=== PATIENT | female | born 1990 | race Caucasian/White ===

== ENCOUNTER → 2017-11-29 14:03 | Outpatient (CLI) | payer OTHER, MEDICAID, SELFPAY ==
[2017-11-29 16:34] LABS: Vitamin D 25 Hydroxy (D3) 72.2 ng/mL (30.0-100.0)
== END ==
PROVIDERS: Visit Provider Orthopaedic Surgery Foot and Ankle Surgery
DX: E55.9 Vitamin D deficiency, unspecified (principal)
CPT/HCPCS: 36415; 82306

== ENCOUNTER → 2018-05-31 11:40 | Outpatient (CLI) | payer OTHER, SELFPAY ==
[2018-05-31 16:27] LABS: TSH w/ Reflex to FT4 4.79 uIU/mL (0.47-4.68)
[2018-05-31 17:15] LABS: Free T4, Direct Thyroxine 0.79 ng/dL (0.78-2.19)
== END ==
PROVIDERS: PCP Family Medicine; Visit Provider Family Medicine
DX: E03.9 Hypothyroidism, unspecified (principal)
CPT/HCPCS: 36415; 84439; 84443

== ENCOUNTER → 2018-07-16 14:13 | Outpatient (CLI) | payer OTHER, SELFPAY ==
[2018-07-16 15:38] LABS: Thyroid Stimulating Hormone 4.87 uIU/mL (0.47-4.68)
== END ==
LOC: LAB 14:13
PROVIDERS: PCP Family Medicine; Visit Provider Family Medicine
DX: E03.9 Hypothyroidism, unspecified (principal)
CPT/HCPCS: 36415; 84443

== ENCOUNTER → 2019-01-03 12:25 | Outpatient (CLI) | payer SELFPAY ==
[2019-01-03 15:15] LABS: Bacteria Urine None Seen; RBC Urine None Seen (0-5/HPF)
[2019-01-03 15:24] LABS: Appearance Urine UA CLEAR; Bilirubin Urine UA NEGATIVE (NEGATIVE); Color Urine UA YELLOW; Glucose Urine UA NEGATIVE (Negative); Ketones Urine UA NEGATIVE (NEGATIVE); Leukocyte Esterase Urine UA NEGATIVE (NEGATIVE); Nitrite Urine UA NEGATIVE (Negative); Occult Blood Urine UA NEGATIVE (Negative); Protein Urine UA NEGATIVE (Negative); Specific Gravity Urine UA 1.015 (1.000-1.035); Urobilinogen Urine UA 0.2 E.U./dL (0.2)
[2019-01-03 15:44] LABS: Culture Indicated Urine Cult Not Indicated; Renal Epithelial Cells Urine 0-1/HPF (0-1/HPF); Squamous Epithelial Cell Urine 0-1 /HPF (0-5/HPF); WBC Urine 0-1/HPF (0-5/HPF)
== END ==
PROVIDERS: PCP Family Medicine; Visit Provider Hospitalist
DX: M54.9 Dorsalgia, unspecified (principal)
CPT/HCPCS: 81001

== ENCOUNTER → 2019-02-06 14:43 | Outpatient (CLI) | payer SELFPAY | PROVIDERS: PCP Family Medicine; Visit Provider Family Medicine | DX: E03.9 Hypothyroidism, unspecified (principal) | CPT/HCPCS: 36415; 84443 ==

== ENCOUNTER → 2019-03-25 10:04 | Outpatient (CLI) | payer OTHER, MEDICAID, SELFPAY ==
[2019-03-25 10:42] LABS: Add Manual Diff / Slide Review NO; Basophils Absolute Auto 0 /uL (0-100); Basophils Percent Auto 0.4 % (0-2); Eosinophils Absolute Auto 200 /uL (0-450); Eosinophils Percent Auto 2.4 % (2-4); Hematocrit 34.9 % (36-46); Hemoglobin 11.7 g/dL (12.0-16.0); Lymphocytes Absolute Auto 1900 /uL (1100-4500); Lymphocytes Percent Auto 25.4 % (25-40); Mean Corpuscular HGB Conc 33.4 % (30-36); Mean Corpuscular Hemoglobin 30.8 PG (26-34); Monocytes Absolute Auto 500 /uL (0-900); Monocytes Percent Auto 6.5 % (3-14); Neutrophils Absolute Auto 4900 /uL (1500-7000); Neutrophils Percent Auto 65.3 % (50-75); Platelet Count 304 X10^3/uL (150-400); Red Blood Cell Count 3.79 X10^6/uL (4.0-5.2); Red Cell Distribution Width 12.9 % (11.6-14.8); White Blood Cell Count 7.6 X10^3/uL (4.5-11.0)
[2019-03-25 10:52] LABS: Appearance Urine UA SL CLOUDY; Bilirubin Urine UA NEGATIVE (NEGATIVE); Color Urine UA YELLOW; Glucose Urine UA NEGATIVE (Negative); Ketones Urine UA NEGATIVE (NEGATIVE); Leukocyte Esterase Urine UA NEGATIVE (NEGATIVE); Nitrite Urine UA NEGATIVE (Negative); Occult Blood Urine UA NEGATIVE (Negative); Protein Urine UA NEGATIVE (Negative); Urobilinogen Urine UA 0.2 E.U./dL (0.2)
[2019-03-25 12:20] LABS: Hepatitis B Surface Antigen NEGATIVE s/c (NEGATIVE); Rubella Antibody IgG 77.3 IU/mL (>15)
[2019-03-25 12:22] LABS: HCG Quantitative /Beta subunit 38064 mIU/mL
[2019-03-25 12:50] LABS: HIV 1 & 2 Ab/Ag 4th Gen Combo NEGATIVE (NEGATIVE); Hep C Virus Ab w/Reflex Quant NEGATIVE s/c (NEGATIVE)
[2019-03-27 15:44] LABS: RPR Screen Nonreactive (Nonreactive)
== END ==
PROVIDERS: PCP Family Medicine; Visit Provider Family Medicine
DX: Z34.01 Encounter for supervision of normal first pregnancy, first trimester (principal); E03.9 Hypothyroidism, unspecified
CPT/HCPCS: 36415; 80055; 81003; 84443; 84702; 86787; 86803; 86850; 86900; 86901; 87086; 87389

== ENCOUNTER → 2019-03-27 16:40 | Outpatient (CLI) | payer OTHER, MEDICAID, SELFPAY ==
[2019-03-27 18:39] LABS: HCG Quantitative /Beta subunit 54112 mIU/mL
== END ==
PROVIDERS: PCP Family Medicine; Visit Provider Family Medicine
DX: Z34.90 Encounter for supervision of normal pregnancy, unspecified, unspecified trimester (principal)
CPT/HCPCS: 36415; 84702

== ENCOUNTER 2019-04-24 02:03 | Emergency (ER) | payer OTHER, MEDICAID, SELFPAY ==
[2019-04-24 02:20] VITALS: BP 118/70; PULSE 77; RESP 18; TEMP 36.6; O2SAT 100; BMI 26.9
--- NOTE | 2019-04-24 02:37 | ED_ITS ---
HPI - General Chief complaint: Abdominal Pain Stated complaint: pain in pelvic area/back 10 weeks Time Seen by Provider: 04/24/19 02:29 Source: patient Mode of arrival: Family Vehicle History of Present Illness HPI Narrative: Patient is a 28-year-old female currently 10 weeks G6 P 1 presenting with right-sided pain. His it seems to come in waves of intensity. It was there earlier today but has gotten significantly worse tonight. She was actually seen evaluated by her Ob she had an ultrasound done today which did show healthy baby. She has not had any vaginal bleeding she sometimes feels nauseous but has not been vomiting. No fever or chills. It seems to be in her right lateral side and can sometimes go to her abdomen and sometimes to her flank it is definitely worse with movement. Related Data Home Medications Medication Instructions Recorded Confirmed prenat.vits,lyla,[id number] 1 tab PO DAILY 03/24/19 04/02/19 Previous Rx's Medication Instructions Recorded levothyroxine 50 mcg tablet 50 mcg PO DAILY #30 tab 02/10/19 ondansetron 4 mg disintegrating 4 mg PO Q8H PRN #30 tab 04/02/19 tablet sertraline 25 mg tablet 25 mg PO DAILY #60 tab 04/02/19 Allergies Allergy/AdvReac Type Severity Reaction Status Date / Time Latex, Natural Rubber Allergy Intermediate Rash Verified 04/02/19 14:48 penicillin G Allergy Intermediate Vomiting Verified 04/02/19 14:48 wheat AdvReac Mild Constipatio Verified 04/02/19 14:48 n eggs Allergy Mild Stomach Uncoded 04/02/19 14:48 Upset : egg whites Review of Systems Review of Systems Narrative: GENERAL: Denies chills, fatigue, malaise, fever, sweats, travel HEENT: Denies sinus pain, ear pain, sore throat, difficulty swallowing, neck pain RESPIRATORY: Denies dyspnea, cough, wheezing, hemoptysis, sputum. CARDIOVASCULAR: Denies chest pain, palpitations, orthopnea, edema GASTROINTESTINAL: See HPI : Denies dysuria, frequency, incontinence, hematuria, urinary retention, flank pain. MUSCULOSKELETAL: Denies weakness, joint pain, or bony pain SKIN: No rash, no erythema, no pruritus NEUROLOGIC: Denies weakness, dizziness, headache, numbness, change in speech, confusion PSYCHIATRIC: No concerning psychosocial issues. 12 point review of systems is negative except for those stated above and HPI PMFSH - Past Medical History Additional medical history: Depression, anxiety Surgical history: Reports no surgical history Exam Initial Vital Signs Initial Vital Signs: Vital Signs Temperature 97.9 F 04/24/19 02:20 Pulse Rate 77 04/24/19 02:20 Respiratory Rate 18 04/24/19 02:20 Blood Pressure 118/70 04/24/19 02:20 Pulse Oximetry 100 04/24/19 02:20 GENERAL: Young female tearful appears in pain HEENT: Head atraumatic,EOMI, pupils reactive, face symmetric CARDIOVASCULAR: Regular rate and rhythm without murmurs, rubs or gallops. RESPIRATORY: Breath sounds equal bilaterally, no wheezes rales or rhonchi. ABDOMEN: Soft, mild right lateral pain some right flank pain no role right lower quadrant pain some minimal right upper quadrant pain negative Berg sign EXTREMITIES: Normal range of motion, no clubbing or edema. Neurovascularly intact NEUROLOGICAL: Alert and oriented x4.Normal gait and speech. Cranial nerves II through XII grossly intact. SKIN: Warm, dry, no laceration, no petechiae, no rashes or lesions. Course Orders Ordered: ED Orders 04/24/19 02:38 Complete Blood Count AUTO DIFF Stat Comprehensive Metabolic Panel Stat Lipase Stat 04/24/19 02:45 US abdomen complete Stat Discontinued Medications Hydromorphone HCl (Dilaudid) 0.5 mg IV NOW ONE Stop: 04/24/19 02:46 Last Admin: 04/24/19 02:56 Dose: 0.5 mg Documented by: MMCFARL Sodium Chloride (Normal Saline 0.9%) 1,000 mls @ 1,000 mls/hr IV CONT VEL Last Infusion: 04/24/19 03:37 Dose: 1,000 mls/hr Documented by: Admin: 04/24/19 02:44 Dose: 1,000 mls/hr Documented by: MMCFARL Ondansetron HCl (Zofran) 4 mg IV NOW ONE Stop: 04/24/19 02:31 Last Admin: 04/24/19 02:44 Dose: 4 mg Documented by: MMCFARL Vital Signs Vital signs: Vital Signs - 8 hr 04/24/19 02:20 04/24/19 03:46 04/24/19 04:19 Temperature 97.9 F Pulse Rate 77 78 70 Respiratory Rate 18 19 17 Blood Pressure 118/70 Blood Pressure [Right Arm] 116/63 115/73 Pulse Oximetry 100 100 99 MDM - OB/Uterine Contractions Lab Data Attestation: I reviewed the patient's lab results. Result diagrams: 04/24/19 02:38 04/24/19 02:38 Labs: Lab Results 04/24/19 04/24/19 Range/Units 02:38 02:38 WBC 10.4 (4.5-11.0) X10^3/uL RBC 3.90 L (4.0-5.2) X10^6/uL Hgb 12.2 (12.0-16.0) g/dL Hct 35.6 L (36-46) % MCV 91.3 (80-100) fL MCH 31.3 (26-34) PG MCHC 34.3 (30-36) % RDW 12.7 (11.6-14.8) % Plt Count 300 (150-400) X10^3/uL Neut % (Auto) 78.7 H (50-75) % Lymph % (Auto) 14.3 L (25-40) % [place] % (Auto) 5.7 (3-14) % Eos % (Auto) 0.8 L (2-4) % Baso % (Auto) 0.5 (0-2) % Neut # (Auto) 8200 H (1655-3045) /uL Lymph # (Auto) 1500 (2272-2704) /uL [place] # (Auto) 600 (0-900) /uL Eos # (Auto) 100 (0-450) /uL Baso # (Auto) 100 (0-100) /uL Sodium 137 (137-145) mmol/L Potassium 3.5 (3.4-5.1) mmol/L Chloride 103 (98-107) mmol/L Carbon Dioxide 23 (22-32) mmol/L BUN 13 (7-17) mg/dL Creatinine 0.50 L (0.52-1.04) mg/dL Estimated GFR > 60.0 (>60) mL/min BUN/Creatinine Ratio 26.0 H (6-22) Glucose 108 H (70-100) mg/dL Calcium 9.6 (8.4-10.2) mg/dL Total Bilirubin 0.6 (0.2-1.3) mg/dL AST 27 (14-36) IU/L ALT 18 (<35) IU/L Alkaline Phosphatase 66 (38-126) U/L Total Protein 7.3 (6.3-8.2) g/dL Albumin 4.5 (3.5-5.0) g/dL Globulin 2.8 (1.7-4.1) g/dL Albumin/Globulin Ratio 1.6 (1.0-2.8) Lipase 30 (23-300) U/L Point of Care Testing Test Results Positive Urine Dip Bedside Urine Glucose Negative Bedside Urine Bilirubin - Negative Bedside Urine Ketone - Negative Urine Specific [place] 1.010 Bedside Urine Occult Blood - Negative Bedside Urine pH 7.0 Bedside Urine Protein - Negative Bedside Urine Urobilinogen - Negative Bedside Urine Nitrite - Negative Bedside Urine Leukocytes - Negative Esterase Imaging Data US - abdomen: Radiologist's impression: 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 Live intrauterine fetus with positive cardiac activity measuring 153 beats per minute MDM Narrative Medical decision making narrative: Patient's pain significantly improved after Dilaudid. The pain is worse with movement which suggest more musculoskeletal. No sign of infection ultrasound negative. At this time recommend outpatient follow-up. Discharge Plan Departure Patient Disposition: Home Clinical Impression: Abdominal pain affecting Discharge Date/Time: 04/24/19 04:39 Instructions: DI for Abdominal Pain-Adult, DI for Abdominal Pain -- Early Activity Restrictions/Additional Instructions: *You have been diagnosed with abdominal pain and *What to do: At this time blood work is overall reassuring ultrasound did not show cause of pain. No sign of kidney stone or gallbladder problem appendix was not seen however this is not consistent with appendicitis. Baby as good strong heartbeat *Continue to take medications as directed Tylenol 1000 mg every 6 hours only if needed for mild to moderate pain *Follow up with your primary care provider in 2-3 days *Return to ER if you should have increasing pain, fever not controlled, vaginal bleeding, worsening abdominal pain or cramping or any new, worsening or concerning symptoms Prescriptions: No Action sertraline 25 mg tablet 25 mg PO DAILY Qty: 60 RF: 2 ondansetron 4 mg tablet,disintegrating 4 mg PO Q8H PRN (Reason: nausea and vomiting) Qty: 30 RF: 2 levothyroxine [Synthroid] 50 mcg tablet 50 mcg PO DAILY Qty: 30 RF: 5 prenat.vits,lyla,[id number] Tablet 1 tab PO DAILY RF: 0 Referrals: Xiomara Sarabia MD [Primary Care Provider] -
[2019-04-24] MEDS: ONDANSETRON 4 MG/2 ML INJ IV (02:44)
[2019-04-24] MEDS: SODIUM CHLORIDE 0.9% 1,000 ML 1000 ML IV (02:44)
--- NOTE | 2019-04-24 02:45 | DI.US.S_ITS ---
PROCEDURE: US ABDOMEN COMPLETE INDICATIONS: Right sided pain- lower, flank and ruq TECHNIQUE: Real-time scanning was performed of the abdominal and retroperitoneal organs, with image documentation. COMPARISON: None. FINDINGS: Liver: Liver is normal in size and homogeneous in echotexture. Gallbladder: No gallstones. No gallbladder wall thickening, pericholecystic fluid or sonographic Berg's sign. Biliary ducts: Intrahepatic bile ducts are non-dilated. Extrahepatic bile duct caliber measures 5.3 mm. Normal is 6-7 mm or less in diameter, or 10 mm or less post-cholecystectomy. Pancreas: Visualized portions of the pancreas are sonographically normal. Spleen: Spleen is normal in size and homogeneous in echotexture. Kidneys: Kidneys are normal in size and echotexture. Right kidney measures 11.4 cm long; left kidney measures 10.5 cm long. No hydronephrosis or nephrolithiasis. No solid masses. Aorta: Visualized aorta is normal in caliber at less than 3 cm. Iliacs: Proximal common iliac arteries are normal in caliber at less than 2.5 cm. IVC: Intrahepatic inferior vena cava is patent. Miscellaneous: No free abdominal fluid. There is an single living IUP. heart rate is 153 bpm. IMPRESSION: 1. Normal abdominal ultrasound. 2. Single living IUP with heart rate 153 bpm. Dictated by: Marlin Mcnulty M.D. on 04/24/2019 at 8:49 Approved by: Marlin Mcnulty M.D. on 04/24/2019 at 8:51
[2019-04-24 02:51] LABS: Add Manual Diff / Slide Review NO; Basophils Absolute Auto 100 /uL (0-100); Basophils Percent Auto 0.5 % (0-2); Eosinophils Absolute Auto 100 /uL (0-450); Eosinophils Percent Auto 0.8 % (2-4); Hematocrit 35.6 % (36-46); Hemoglobin 12.2 g/dL (12.0-16.0); Lymphocytes Absolute Auto 1500 /uL (1100-4500); Lymphocytes Percent Auto 14.3 % (25-40); Mean Corpuscular HGB Conc 34.3 % (30-36); Mean Corpuscular Hemoglobin 31.3 PG (26-34); Mean Corpuscular Volume 91.3 fL (80-100); Monocytes Absolute Auto 600 /uL (0-900); Monocytes Percent Auto 5.7 % (3-14); Neutrophils Absolute Auto 8200 /uL (1500-7000); Neutrophils Percent Auto 78.7 % (50-75); Platelet Count 300 X10^3/uL (150-400); Red Cell Distribution Width 12.7 % (11.6-14.8); White Blood Cell Count 10.4 X10^3/uL (4.5-11.0)
[2019-04-24] MEDS: HYDROMORPHONE 0.5 MG INJ IV (02:56)
[2019-04-24 02:59] LABS: Alanine Aminotransferase 18 IU/L (<35); Albumin 4.5 g/dL (3.5-5.0); Albumin Globulin Ratio 1.6 (1.0-2.8); Alkaline Phosphatase 66 U/L (38-126); Aspartate Aminotransferase 27 IU/L (14-36); Bilirubin Total 0.6 mg/dL (0.2-1.3); Blood Urea Nitrogen 13 mg/dL (7-17); Calcium 9.6 mg/dL (8.4-10.2); Carbon Dioxide 23 mmol/L (22-32); Chloride 103 mmol/L (98-107); Estimated Glomerular Filt Rate > 60.0 mL/min (>60); Globulin 2.8 g/dL (1.7-4.1); Glucose 108 mg/dL (70-100); HEMOLYSIS 26 (0-50); Lipase 30 U/L (23-300); Potassium 3.5 mmol/L (3.4-5.1); Sodium 137 mmol/L (137-145); Total Protein 7.3 g/dL (6.3-8.2)
[2019-04-24 03:46] VITALS: BP 116/63; PULSE 78; RESP 19; O2SAT 100
[2019-04-24 04:19] VITALS: BP 115/73; PULSE 70; RESP 17; O2SAT 99
== END 2019-04-24 04:39 | disposition home or self-care (01) ==
PROVIDERS: Emergency Provider Emergency Medicine; PCP Family Medicine
DX: R10.9 Unspecified abdominal pain (principal)
CPT/HCPCS: 36415; 76700; 80053; 81003; 81025; 83690; 85025; 96361; 96374; 96375; 99284; J1170; J2405

== ENCOUNTER 2019-05-01 03:08 | Emergency (ER) | payer OTHER, MEDICAID, SELFPAY ==
[2019-05-01 03:17] VITALS: BP 116/81; PULSE 87; RESP 22; TEMP 36.8; O2SAT 99; BMI 25.9
--- NOTE | 2019-05-01 03:28 | ED_ITS ---
HPI - Nausea/Vomiting/Diarrhea General Chief complaint: Nausea/Vomiting/Diarrhea Stated complaint: 11 weeks vomiting Time Seen by Provider: 05/01/19 03:10 Source: patient Mode of arrival: Ambulatory Limitations: no limitations History of Present Illness HPI Narrative: 28-year-old female nonsmoker, daily user of cannabis is a at 11 weeks who presents with chief complaint of 2 hours of frequent vomiting and episodes of generalized abdominal pain. She denies any exposure to ill persons and denies any bad food. She has had no fever but has had complaints of chills, particularly with vomiting. She denies any vaginal bleeding or discharge. She denies any dysuria, frequency or urgency. A week ago under very similar circumstances and had an unremarkable abdominal ultrasound. She had been fine a nd well until she woke up about 2 hours prior to her arrival and states that vomiting and this episodic abdominal discomfort started about the same time MD complaint: nausea, vomiting and abdominal pain Onset (ago): hour(s) Description of Vomiting: food contents Description of Diarrhea: none Associated Abdominal Pain: Yes Location of pain: diffuse Severity: moderate Quality: cramping Pain Consistency: intermittent Relieving factors: none Exacerbating factors: none Associated symptoms: denies other symptoms Related Data Home Medications Medication Instructions Recorded Confirmed prenat.vits,lyla,[id number] 1 tab PO DAILY 03/24/19 04/02/19 Previous Rx's Medication Instructions Recorded levothyroxine 50 mcg tablet 50 mcg PO DAILY #30 tab 02/10/19 ondansetron 4 mg disintegrating 4 mg PO Q8H PRN #30 tab 04/02/19 tablet sertraline 25 mg tablet 25 mg PO DAILY #60 tab 04/02/19 metoclopramide HCl 10 mg PO Q6H PRN #20 tab 05/01/19 ondansetron 4 mg PO TID-QID PRN #10 tab 05/01/19 Allergies Allergy/AdvReac Type Severity Reaction Status Date / Time Latex, Natural Rubber Allergy Intermediate Rash Verified 05/01/19 03:17 penicillin G Allergy Intermediate Vomiting Verified 05/01/19 03:17 wheat AdvReac Mild Constipatio Verified 05/01/19 03:17 n eggs Allergy Mild Stomach Uncoded 05/01/19 03:17 Upset : egg whites Review of Systems Constitutional Constitutional: Denies chills, Denies fatigue, Denies fever(s), Denies frequent falls, Denies lethargy and Denies weakness Eyes Eyes: Denies change in vision, Denies eye discharge, Denies irritation and Denies loss of vision ENT Ears, Nose, Mouth, and Throat: Denies change in voice, Denies dizziness, Denies neck pain, Denies sore throat and Denies throat swelling Cardiovascular Cardiovascular: Denies chest pain, Denies irregular heart rhythm, Denies lightheadedness, Denies palpitations, Denies dyspnea, Denies dyspnea on exertion and Denies orthopnea Respiratory Respiratory: Denies cough, Denies dyspnea, Denies dyspnea on exertion and Denies wheezing Gastrointestinal Gastrointestinal: Reports abdominal pain, Denies change in bowel habits, Denies diarrhea, Reports nausea and Reports vomiting Genitourinary Genitourinary: Denies hematuria, Denies flank pain, Denies urinary incontinence and Denies urinary urgency Musculoskeletal Musculoskeletal: Denies back pain, Denies muscle weakness, Denies neck pain, Denies numbness and Denies tingling Integumentary/Breasts Skin/Breast: Denies pruritus, Denies erythema, Denies rash and Denies wounds Neurologic Neurologic: Denies behavioral changes, Denies confusion, Denies dizziness, Denies frequent falls, Denies loss of vision, Denies numbness, Denies tingling and Denies weakness Psychiatric Psychiatric: Denies anxiety, Denies behavioral changes, Denies confusion, Denies depression, Denies homicidal ideation and Denies suicidal ideation Endocrine Endocrine: Denies fatigue, Denies flushing and Denies palpitations Hematologic/Lymphatic Hematologic/Lymphatic: Denies easy bruising Allergic/Immunologic Allergic/Immunologic: Denies urticaria, Denies throat swelling and Denies wheezing Patient History Medical History Anemia (Chronic ~2009) Ankle pain (Chronic ~2003) Anorexia nervosa (Chronic) Anxiety (Chronic ~1999) Asthma (Chronic ~2002) Chronic back pain (Chronic ~2007) Depression (Chronic ~1999) Depression with anxiety (Chronic) Fibromyalgia (Chronic ~2003) Foot pain (Chronic ~2008) H/O reduction of closed dislocation (Resolved) Headache (Chronic ~2006) Heavy menstrual period (Chronic ~2002) Hypothyroid (Chronic ~2006) Irritable bowel syndrome (Chronic) Ovarian cyst (Chronic ~2013) Painful menstrual periods (Chronic ~2002) Scoliosis (Chronic ~2006) Seasonal allergies (Chronic) Shoulder pain (Chronic ~2005) Substance abuse (Chronic ~2005) Surgical History Anesthesia (Resolved) History of bone graft (Resolved ~09/04/17) Humerus fracture (Resolved ~2017) Staph infection (Resolved ~10/2009) Family History Grandmother Diabetes mellitus Cancer Sister Lupus Depression Anxiety Mother Hyperlipidemia Hypertension Grandfather Cancer Diabetes mellitus Suicide Grandfather Brain tumor Family/Other Diabetes mellitus Social History marital status: household members: significant other and children pets and animals: Yes (Dogs X 2) education level: other (Some Trade School) occupational status: employed current occupational exposures/hazards: Yes 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 Well- nourished, well-developed patient, in mild distress. HEAD: Atraumatic. Normocephalic. EYES: Pupils equal round and reactive. Extraocular motions intact. No scleral icterus. No injection or drainage. ENT: Nose without bleeding, purulent drainage. Throat without erythema, tonsillar hypertrophy or exudate. Airway patent. NECK: Trachea midline. Non tender CARDIOVASCULAR: Regular rate and rhythm without murmurs, gallops, or rubs. RESPIRATORY: Clear to auscultation. Breath sounds equal bilaterally. No wheezes, rales, or rhonchi. GASTROINTESTINAL: Abdomen soft, non-tender, nondistended. EXTREMITIES: No edema or joint tenderness. BACK: Nontender without deformity or crepitance. No flank tenderness. NEURO: AOx3. SKIN: No rash or erythema of visible areas Initial Vital Signs Initial Vital Signs: Vital Signs Temperature 98.2 F 05/01/19 03:17 Pulse Rate 87 05/01/19 03:17 Respiratory Rate 22 05/01/19 03:17 Blood Pressure 116/81 05/01/19 03:17 Pulse Oximetry 99 05/01/19 03:17 Course Orders Ordered: ED Orders 05/01/19 03:30 Complete Blood Count AUTO DIFF Stat Comprehensive Metabolic Panel Stat Ketones (Beta-Hydroxybutyrate) Stat 05/01/19 03:35 Urinalysis and Microscopic Stat Discontinued Medications Sodium Chloride (Normal Saline 0.9%) 1,000 mls @ 1,000 mls/hr IV BOLUS ONE Stop: 05/01/19 04:19 Last Infusion: 05/01/19 04:27 Dose: 0 mls/hr Documented by: Admin: 05/01/19 03:35 Dose: 1,000 mls/hr Documented by: NORBERTO Sodium Chloride (Normal Saline 0.9%) 1,000 mls @ 1,000 mls/hr IV BOLUS ONE Stop: 05/01/19 05:18 Last Infusion: 05/01/19 05:29 Dose: 0 mls/hr Documented by: Admin: 05/01/19 04:26 Dose: 1,000 mls/hr Documented by: NORBERTO Metoclopramide HCl (Reglan) 10 mg IV NOW ONE Stop: 05/01/19 04:22 Last Admin: 05/01/19 04:27 Dose: 10 mg Documented by: NORBERTO Ondansetron HCl (Zofran) 4 mg IV NOW ONE Stop: 05/01/19 03:21 Last Admin: 05/01/19 03:35 Dose: 4 mg Documented by: NORBERTO Ondansetron HCl (Zofran) 4 mg IV NOW ONE Stop: 05/01/19 06:25 Vital Signs Vital signs: Vital Signs - 8 hr 05/01/19 03:17 Temperature 98.2 F Pulse Rate 87 Respiratory Rate 22 Blood Pressure 116/81 Pulse Oximetry 99 MDM - Nausea/Vomiting/Diarrhea Lab Data Result diagrams: 05/01/19 03:30 05/01/19 03:30 Labs: Lab Results 05/01/19 05/01/19 05/01/19 Range/Units 03:30 03:30 03:30 WBC 11.3 H (4.5-11.0) X10^3/uL RBC 3.84 L (4.0-5.2) X10^6/uL Hgb 11.8 L (12.0-16.0) g/dL Hct 35.0 L (36-46) % MCV 91.2 (80-100) fL MCH 30.7 (26-34) PG MCHC 33.7 (30-36) % RDW 13.1 (11.6-14.8) % Plt Count 287 (150-400) X10^3/uL Neut % (Auto) 76.8 H (50-75) % Lymph % (Auto) 15.7 L (25-40) % [place] % (Auto) 6.0 (3-14) % Eos % (Auto) 1.2 L (2-4) % Baso % (Auto) 0.3 (0-2) % Neut # (Auto) 8700 H (3963-5115) /uL Lymph # (Auto) 1800 (9940-8575) /uL [place] # (Auto) 700 (0-900) /uL Eos # (Auto) 100 (0-450) /uL Baso # (Auto) 0 (0-100) /uL Sodium 137 (137-145) mmol/L Potassium 3.6 (3.4-5.1) mmol/L Chloride 103 (98-107) mmol/L Carbon Dioxide 24 (22-32) mmol/L BUN 12 (7-17) mg/dL Creatinine 0.40 L (0.52-1.04) mg/dL Estimated GFR > 60.0 (>60) mL/min BUN/Creatinine Ratio 30.0 H (6-22) Glucose 107 H (70-100) mg/dL Calcium 9.3 (8.4-10.2) mg/dL Total Bilirubin 0.1 L (0.2-1.3) mg/dL AST 30 (14-36) IU/L ALT 30 (<35) IU/L Alkaline Phosphatase 71 (38-126) U/L Total Protein 7.0 (6.3-8.2) g/dL Albumin 4.2 (3.5-5.0) g/dL Globulin 2.8 (1.7-4.1) g/dL Albumin/Globulin Ratio 1.5 (1.0-2.8) Urine Color Urine Appearance Urine pH (4.5-8.0) Ur Specific [place] (1.000-1.035) Urine Protein (Negative) Urine Glucose (UA) (Negative) g/dL Urine Ketones (NEGATIVE) Urine Occult Blood (Negative) Urine Nitrate (Negative) Urine Bilirubin (NEGATIVE) Urine Urobilinogen (0.2) E.U./dL Ur Leukocyte Esterase (NEGATIVE) Urine RBC (0-5/HPF) Urine WBC (0-5/HPF) Amorphous Sediment Urine Bacteria (None) Ur Culture Indicated? Ketones 0.11 (<0.27) mmol/L 05/01/19 Range/Units 03:35 WBC (4.5-11.0) X10^3/uL RBC (4.0-5.2) X10^6/uL Hgb (12.0-16.0) g/dL Hct (36-46) % MCV (80-100) fL MCH (26-34) PG MCHC (30-36) % RDW (11.6-14.8) % Plt Count (150-400) X10^3/uL Neut % (Auto) (50-75) % Lymph % (Auto) (25-40) % [place] % (Auto) (3-14) % Eos % (Auto) (2-4) % Baso % (Auto) (0-2) % Neut # (Auto) (4860-1582) /uL Lymph # (Auto) (6768-5822) /uL [place] # (Auto) (0-900) /uL Eos # (Auto) (0-450) /uL Baso # (Auto) (0-100) /uL Sodium (137-145) mmol/L Potassium (3.4-5.1) mmol/L Chloride (98-107) mmol/L Carbon Dioxide (22-32) mmol/L BUN (7-17) mg/dL Creatinine (0.52-1.04) mg/dL Estimated GFR (>60) mL/min BUN/Creatinine Ratio (6-22) Glucose (70-100) mg/dL Calcium (8.4-10.2) mg/dL Total Bilirubin (0.2-1.3) mg/dL AST (14-36) IU/L ALT (<35) IU/L Alkaline Phosphatase (38-126) U/L Total Protein (6.3-8.2) g/dL Albumin (3.5-5.0) g/dL Globulin (1.7-4.1) g/dL Albumin/Globulin Ratio (1.0-2.8) Urine Color Yellow Urine Appearance Cloudy Urine pH 7.0 (4.5-8.0) Ur Specific [place] 1.010 (1.000-1.035) Urine Protein Negative (Negative) Urine Glucose (UA) Negative (Negative) g/dL Urine Ketones Negative (NEGATIVE) Urine Occult Blood Negative (Negative) Urine Nitrate Negative (Negative) Urine Bilirubin Negative (NEGATIVE) Urine Urobilinogen 0.2 (0.2) E.U./dL Ur Leukocyte Esterase Negative (NEGATIVE) Urine RBC None seen (0-5/HPF) Urine WBC None seen (0-5/HPF) Amorphous Sediment 4+ Urine Bacteria None seen (None) Ur Culture Indicated? Cult not indicated Ketones (<0.27) mmol/L Discharge Plan Departure Patient Disposition: Home Clinical Impression: Qualifiers: Weeks of gestation: 11 weeks Qualified Code(s): Z3A.11 - 11 weeks gestation of Vomiting Qualifiers: Vomiting type: unspecified Vomiting Intractability: non-intractable Nausea presence: with nausea Qualified Code(s): R11.2 - Nausea with vomiting, unspecified Instructions: DI for Dehydration -- Adult, DI for Nausea -- Adult, DI for Vomiting -- Adult Activity Restrictions/Additional Instructions: 1. Drink plenty of fluids with frequent small sips. 2. For the next 24 hours a clear liquid diet is advised. After that please employ a brat diet which would include bananas, rice, apples, toast. 3. Please take medications as directed. 4. Please follow-up with your doctor in the next 1-2 days. Call the office for an appointment. 5. Please return to the emergency Department for any worsening or persistent symptoms, such as increasing pain or fever. Prescriptions: New ondansetron 4 mg tablet,disintegrating 4 mg PO TID-QID PRN (Reason: nausea and vomiting) Qty: 10 RF: 0 metoclopramide HCl 10 mg tablet 10 mg PO Q6H PRN (Reason: nausea and vomiting) Qty: 20 RF: 0 No Action sertraline 25 mg tablet 25 mg PO DAILY Qty: 60 RF: 2 ondansetron 4 mg tablet,disintegrating 4 mg PO Q8H PRN (Reason: nausea and vomiting) Qty: 30 RF: 2 levothyroxine [Synthroid] 50 mcg tablet 50 mcg PO DAILY Qty: 30 RF: 5 prenat.vits,lyla,[id number] Tablet 1 tab PO DAILY RF: 0 Referrals: Xiomara Sarabia MD [Primary Care Provider] -
[2019-05-01] MEDS: SODIUM CHLORIDE 0.9% 1,000 ML 1000 ML IV ×2 (03:35→04:26)
[2019-05-01] MEDS: ONDANSETRON 4 MG/2 ML INJ IV ×2 (03:35→06:40)
[2019-05-01 03:36] LABS: Add Manual Diff / Slide Review NO; Basophils Absolute Auto 0 /uL (0-100); Basophils Percent Auto 0.3 % (0-2); Eosinophils Absolute Auto 100 /uL (0-450); Eosinophils Percent Auto 1.2 % (2-4); Hemoglobin 11.8 g/dL (12.0-16.0); Lymphocytes Absolute Auto 1800 /uL (1100-4500); Lymphocytes Percent Auto 15.7 % (25-40); Mean Corpuscular HGB Conc 33.7 % (30-36); Mean Corpuscular Hemoglobin 30.7 PG (26-34); Mean Corpuscular Volume 91.2 fL (80-100); Monocytes Absolute Auto 700 /uL (0-900); Neutrophils Absolute Auto 8700 /uL (1500-7000); Neutrophils Percent Auto 76.8 % (50-75); Platelet Count 287 X10^3/uL (150-400); Red Blood Cell Count 3.84 X10^6/uL (4.0-5.2); Red Cell Distribution Width 13.1 % (11.6-14.8); White Blood Cell Count 11.3 X10^3/uL (4.5-11.0)
[2019-05-01 03:41] LABS: Bacteria Urine None Seen; RBC Urine None Seen (0-5/HPF); WBC Urine None Seen (0-5/HPF)
[2019-05-01 03:42] LABS: Bilirubin Urine UA NEGATIVE (NEGATIVE); Color Urine UA YELLOW; Glucose Urine UA NEGATIVE (Negative); Ketones Urine UA NEGATIVE (NEGATIVE); Leukocyte Esterase Urine UA NEGATIVE (NEGATIVE); Nitrite Urine UA NEGATIVE (Negative); Occult Blood Urine UA NEGATIVE (Negative); Protein Urine UA NEGATIVE (Negative); Urobilinogen Urine UA 0.2 E.U./dL (0.2)
[2019-05-01 03:43] LABS: Appearance Urine UA Cloudy
[2019-05-01 03:45] LABS: Alanine Aminotransferase 30 IU/L (<35); Albumin 4.2 g/dL (3.5-5.0); Albumin Globulin Ratio 1.5 (1.0-2.8); Alkaline Phosphatase 71 U/L (38-126); Aspartate Aminotransferase 30 IU/L (14-36); Bilirubin Total 0.1 mg/dL (0.2-1.3); Blood Urea Nitrogen 12 mg/dL (7-17); Calcium 9.3 mg/dL (8.4-10.2); Carbon Dioxide 24 mmol/L (22-32); Chloride 103 mmol/L (98-107); Estimated Glomerular Filt Rate > 60.0 mL/min (>60); Globulin 2.8 g/dL (1.7-4.1); Glucose 107 mg/dL (70-100); HEMOLYSIS < 15 (0-50); Potassium 3.6 mmol/L (3.4-5.1); Sodium 137 mmol/L (137-145)
[2019-05-01 03:47] LABS: Ketones (Beta-Hydroxybutyrate) 0.11 mmol/L (<0.27)
[2019-05-01 03:50] LABS: Amorphous Sediment Urine 4+; Culture Indicated Urine Cult Not Indicated
[2019-05-01] MEDS: METOCLOPRAMIDE 10 MG/2 ML INJ IV (04:27)
[2019-05-01 06:46] VITALS: BP 105/63; PULSE 70; RESP 18; O2SAT 99
== END 2019-05-01 06:46 | disposition home or self-care (01) ==
PROVIDERS: Emergency Provider Emergency Medicine; PCP Family Medicine
DX: O21.9 Vomiting of pregnancy, unspecified (principal); Z3A.11 11 weeks gestation of pregnancy
CPT/HCPCS: 36415; 80053; 81001; 82009; 85025; 96361; 96374; 96375; 96376; 99283; 99284; J2405; J2765

== ENCOUNTER → 2019-06-10 14:35 | Outpatient (CLI) | payer OTHER, MEDICAID, SELFPAY ==
[2019-06-13 12:09] LABS: AFP, Serum 35.5 ng/mL; Brief History NTD NG; Cigarette Smoker N; Donated Egg NOT GIVEN; Donor Egg Age NOT GIVEN; Inhibin A, Dimeric 131 pg/mL; Maternal Ethnicity NOT GIVEN; Maternal Weight 150 lbs; Number of Fetuses NOT GIVEN; Previous Pregnancy Down Syndro NOT GIVEN; hCG, MoM 0.78
[2019-06-25 15:48] LABS: Inhibin A, MoM 0.79
== END ==
PROVIDERS: PCP Family Medicine; Referring Provider Family Medicine; Visit Provider Family Medicine
DX: Z34.92 Encounter for supervision of normal pregnancy, unspecified, second trimester (principal)
CPT/HCPCS: 36415; 82105; 82677; 84702; 86336

== ENCOUNTER → 2019-07-01 09:56 | Outpatient (CLI) | payer OTHER, MEDICAID, SELFPAY ==
--- NOTE | 2019-07-01 09:58 | DI.US.S_ITS ---
PROCEDURE: US OB >= 14 WEEKS FETUS INDICATIONS: ANATOMY OUTSIDE/PRIOR DATING DATA: Last menstrual period (LMP): 02/07/19. LMP-based estimated date of delivery (WILLIAM): 11/14/19. First dating scan (date and location): 07/01/19. Estimated date of delivery (WILLIAM) from first dating scan: 11/14/19. TECHNIQUE: Real-time scanning was performed of the fetus, with image documentation and biometric measurements. Endovaginal scanning: Not needed. COMPARISON: None. FINDINGS: General: A single living intrauterine gestation is present. Presentation: Breech, currently mobile. Placenta: Placental position is anterior, without previa. Amniotic fluid index: 17.0 cm, normal range is 5-24 cm. heart rate: 140 beats per minute. Maternal cervical canal: 4.6 cm long. Normal lower limit is 2.5 cm. biometrics: Biparietal diameter: 4.8 cm, 20 weeks 3 days Head circumference: 17.9 cm, 20 weeks 2 days Abdominal circumference: 15.6 cm, 20 weeks 6 days Femur length: 3.3 cm, 20 weeks 3 days Estimated gestational age from initial scan: not applicable. Composite gestational age from present scan: 20 weeks 4 days Estimated weight and percentile: 363 g, 45th percentile Measurement variability for biometric dating: +/- 7 days from 14 weeks to 15 weeks 6 days gestation, +/- 10 days from 16 weeks to 21 weeks 6 days gestation, +/- 2 weeks from 22 weeks to 27 weeks 6 days gestation, +/- 3 weeks for 28 weeks gestation or later. weight reference: 4500 g or EFW >90/95% is considered macrosomia or large for gestational age. EFW <10% is small for gestational age. EFW 5% or less is considered intra-uterine growth restriction. Anatomic survey: Neuro: Ventricles are non-dilated at less than 10 mm. Cisterna magna is normal at 3-11 mm. Cerebellum is normal in size and morphology. Nuchal skin fold: Normal at less than 6 mm between 14-21 weeks gestational age. Face: Nose and lips, facial profile are normal. Spine: No evidence for spina bifida. Heart: 4-chambered heart is present, with normal ventricular outflow tracts. Diaphragm: Diaphragm is intact. Stomach: Left-sided stomach is present. Kidneys: No hydronephrosis. Normal is less than 5 mm in 2nd trimester, less than 7 mm in 3rd trimester. Cord: 3-vessel cord has orthotopic insertion. Bladder: Normal in size. Extremities: All 4 extremities identified. IMPRESSION: Appropriate interval growth, no anomaly seen. Dictated by: Michael Pearson M.D. on 07/01/2019 at 15:05 Approved by: Michael Pearson M.D. on 07/01/2019 at 15:15
== END ==
PROVIDERS: PCP Family Medicine; Referring Provider Family Medicine; Visit Provider Family Medicine
DX: Z34.92 Encounter for supervision of normal pregnancy, unspecified, second trimester (principal); Z3A.20 20 weeks gestation of pregnancy
CPT/HCPCS: 76811

== ENCOUNTER → 2019-08-26 11:08 | Outpatient (CLI) | payer OTHER, MEDICAID, SELFPAY ==
[2019-08-26 13:48] LABS: Hemoglobin 10.6 g/dL (12.0-16.0)
[2019-08-26 14:05] LABS: GTT (PREG) 1 Hour PP 50gm Dose 143 mg/dL (76-139)
[2019-08-26 14:31] LABS: Thyroid Stimulating Hormone 3.52 uIU/mL (0.47-4.68)
== END ==
PROVIDERS: PCP Family Medicine; Referring Provider Family Medicine; Visit Provider Family Medicine
DX: Z34.90 Encounter for supervision of normal pregnancy, unspecified, unspecified trimester (principal); E03.9 Hypothyroidism, unspecified; Z3A.26 26 weeks gestation of pregnancy
CPT/HCPCS: 36415; 82950; 84443; 85014; 85018

== ENCOUNTER → 2019-08-28 10:03 | Outpatient (CLI) | payer OTHER, MEDICAID, SELFPAY ==
[2019-08-28 12:09] LABS: Glucose Fasting Gestational 70 mg/dL (76-95)
[2019-08-28 13:19] LABS: Glucose 2 Hour Gest 88 mg/dL (76-155)
[2019-08-28 13:20] LABS: Glucose 1 Hour Gest 125 mg/dL (76-180)
[2019-08-28 13:28] LABS: Glucose Tol Interp,Gestational INTERPRETATION
[2019-08-28 15:22] LABS: Glucose 3 Hour Gest 96 mg/dL (76-140)
== END ==
PROVIDERS: PCP Family Medicine; Referring Provider Family Medicine; Visit Provider Family Medicine
DX: R73.09 Other abnormal glucose (principal)
CPT/HCPCS: 36415; 82951; 82952

== ENCOUNTER → 2019-10-20 12:23 | Outpatient (CLI) | payer OTHER, MEDICAID, SELFPAY ==
[2019-10-21 15:09] LABS: Strep Grp B PCR NEG for Grp B Strep
== END ==
PROVIDERS: PCP Family Medicine; Visit Provider Family Medicine
DX: Z34.90 Encounter for supervision of normal pregnancy, unspecified, unspecified trimester (principal); Z3A.11 11 weeks gestation of pregnancy
CPT/HCPCS: 87653

== ENCOUNTER → 2019-10-27 12:19 | Outpatient (CLI) | payer OTHER, MEDICAID, SELFPAY | PROVIDERS: PCP Family Medicine; Referring Provider Family Medicine; Visit Provider Family Medicine | DX: E03.9 Hypothyroidism, unspecified (principal) | CPT/HCPCS: 36415; 84443 ==

== ENCOUNTER 2019-11-09 09:12 | Inpatient (IN) | payer OTHER, MEDICAID, SELFPAY ==
--- NOTE | 2019-11-09 | PATH_ITS ---
[facility] Accession Number: [id number] . 01 Material submitted: . PART A: fallopian tube - RIGHT FALLOPIAN TUBE SEGMENT PART B: fallopian tube - LEFT FALLOPIAN TUBE SEGMENT . 02 Diagnosis: A. Right Fallopian Tube Segment, Tubal Ligation: Segment of fallopian tube. No evidence of neoplasm. . B. Left Fallopian Tube Segment, Tubal Ligation: Segment of fallopian tube. No evidence of neoplasm. MRV 11/12/2019 1036 Local . 02 Electronically signed: . Earnest Farr MD, PhD, Pathologist NPI- [id number] . 01 Gross description: . Specimen A is received in formalin, labeled with patient identification and right fallopian tube segment. It consists of a nonfimbriated fallopian tube segment measuring 1.3 cm in length and 0.6 cm in diameter. The serosa is pink-panchal and dull. Sectioning reveals pinpoint and patent lumen which is lined by white-panchal and smooth mucosa. The entire specimen is submitted in one cassette. . Summary of sections: A1 - three pieces. . Specimen B is received in formalin, labeled with patient identification and left fallopian tube segment. It consists of a nonfimbriated fallopian tube segment measuring 1.0 cm in length and 0.5 cm in diameter. The serosa is pink-panchal and dull. Sectioning reveals pinpoint and patent lumen which is lined by yellow-panchal and grossly unremarkable mucosa. The entire specimen is submitted in one cassette. . Summary of sections: B1 - three pieces. ([id number]) /MRV 11/11/2019 1015 Local . 02 Microscopic: . A-B: A complete cross-section of fallopian tube is seen in each part submitted. . 02 Pathologist provided ICD-10: Z30.2 . 02 CPT . 870209, [id number] Performed at: 01 [facility] [address] [place] [address], [place], [place] [id number] MD Kwabena Brewer MD Phone: [phone] Performed at: 02 [facility] [address] [place], [place] [id number] MD Arabella Sacuedo MD Phone: [phone]
[2019-11-09 10:02] LABS: RBC Urine None Seen (0-5/HPF); WBC Urine None Seen (0-5/HPF)
[2019-11-09 10:03] LABS: Appearance Urine UA CLEAR; Bilirubin Urine UA NEGATIVE (NEGATIVE); Color Urine UA YELLOW; Glucose Urine UA NEGATIVE (Negative); Ketones Urine UA NEGATIVE (NEGATIVE); Leukocyte Esterase Urine UA NEGATIVE (NEGATIVE); Nitrite Urine UA NEGATIVE (Negative); Occult Blood Urine UA NEGATIVE (Negative); Protein Urine UA NEGATIVE (Negative); Urobilinogen Urine UA 0.2 E.U./dL (0.2)
[2019-11-09 10:04] LABS: pH Urine UA 7.5 (4.5-8.0)
[2019-11-09 10:10] LABS: Bacteria Urine Occasional (0-1); Culture Indicated Urine Cult Not Indicated; Squamous Epithelial Cell Urine 0-1 /HPF (0-5/HPF)
[2019-11-09] MEDS: LACTATED RINGERS 1,000 ML 1000 ML IV (10:20)
[2019-11-09 11:07] LABS: COVID19 -Nasal RAPID Negative (Negative)
--- NOTE | 2019-11-09 11:07 | P.HPOB_ITS ---
OB HPI Date/Time Date of admission: 11/09/19 Date Patient Seen: 11/09/19 Time Patient Seen: 11:47 History of Present Condition Chief complaint: NST : 6 Para: 1 Estimated Date of Delivery: 11/18/19 Estimated Gestational Age (weeks): 38w5d Narrative: Noemy Garrido is a 29 year old at 38w5d who presents with regular painful contractions. Pt reports contractions starting around 2am, increasing in frequency and intensity since then. No LOF or vaginal bleeding. She has been feeling her baby move regularly. Contractions every 7 minutes at presentation. Indications Operative indications ( section): hx of forceps with resuscitation History of Present care: good care, initiated at week # (6) and pounds weight gain (39) Dating criteria: based on 1st trimester US only Ultrasounds: normal 1st trimester US and normal mid trimester US Obstetrical complications: none Medical complications: psychiatric (bipolar disorder) and other (hypothyroidism) Preadmission Labs Blood type: O (+) positive -: Antibody screen: negative, GBS status: negative, HBsAG: negative, HIV: negative and RPR/VDLR: negative -: Rubella: immune and Varicella: immune HCAB: negative Quad screen: Normal Urine: Negative 1 hr GTT: 143 3 hr GTT: 1 hr (125), 2 hr (88) and 3 hr (96) Fasting blood glucose: 70 Prior (ies) History: 2005, 2007, 2009, 2010 - spontaneous abortions 10/16/2011 - Forceps-assisted vaginal delivery at 43wks after post-dates IOL, female, [id number], required resuscitation and overnight NICU stay, significant perineal laceration Evaluation Evaluation Baseline heart rate: 130 Variability: Moderate (11-25) monitor accelerations: Present monitor decelerations: Absent Contraction Frequency (minutes): 5 Uterine Contraction Intensity: Strong/Firm Category of Tracing: I Cervical dilation (cm): 1 Cervical effacement (%): 75 station: -2 Laboratory results: Laboratory Tests 11/09/19 11/09/19 09:15 09:55 Urine Color Yellow Urine Appearance Clear Urine pH 7.5 Ur Specific [place] 1.010 Urine Protein Negative Urine Glucose (UA) Negative Urine Ketones Negative Urine Occult Blood Negative Urine Nitrate Negative Urine Bilirubin Negative Urine Urobilinogen 0.2 Ur Leukocyte Esterase Negative Urine RBC None seen Urine WBC None seen Ur Squamous Epith Cells 0-1 /hpf Urine Bacteria Occasional (0-1) Ur Culture Indicated? Cult not indicated COVID-19 PCR Negative PFSH Medical History (Updated 05/16/19 @ 00:00 by ) Anemia (Chronic ~2009) Ankle pain (Chronic ~2003) Anorexia nervosa (Chronic) Anxiety (Chronic ~1999) Asthma (Chronic ~2002) Chronic back pain (Chronic ~2007) Depression (Chronic ~1999) Depression with anxiety (Chronic) Fibromyalgia (Chronic ~2003) Foot pain (Chronic ~2008) H/O reduction of closed dislocation (Resolved) Headache (Chronic ~2006) Heavy menstrual period (Chronic ~2002) Hypothyroid (Chronic ~2006) Irritable bowel syndrome (Chronic) Ovarian cyst (Chronic ~2013) Painful menstrual periods (Chronic ~2002) Scoliosis (Chronic ~2006) Seasonal allergies (Chronic) Shoulder pain (Chronic ~2005) Substance abuse (Chronic ~2005) Surgical History Anesthesia (Resolved) History of bone graft (Resolved ~09/04/17) Humerus fracture (Resolved ~2017) Staph infection (Resolved ~10/2009) Family History Grandmother Diabetes mellitus Cancer Sister Lupus Depression Anxiety Mother Hyperlipidemia Hypertension Grandfather Cancer Diabetes mellitus Suicide Grandfather Brain tumor Family/Other Diabetes mellitus Social History marital status: household members: significant other and children pets and animals: Yes (Dogs X 2) education level: other occupational status: employed current occupational exposures/hazards: Yes 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: No leisure activities: exercise, art, music, reading and other Smoking Status: Former smoker alcohol intake: former substance use type: does not use and marijuana Meds Home Medications and Allergies Home Medications Medication Instructions Recorded Confirmed Type prenat.vits,lyla,siz-ocoj-chdqt 1 tab PO DAILY 03/24/19 10/06/19 History metoclopramide HCl 10 mg PO Q6H PRN #20 tab 05/01/19 10/06/19 Rx quetiapine 100 mg tablet 100 mg PO DAILY #30 tab 08/13/19 10/06/19 Rx ondansetron 4 mg disintegrating See Rx Instructions .ROUTE 10/20/19 10/20/19 Rx tablet .COMPLEX #30 tab levothyroxine 50 mcg tablet 50 mcg PO DAILY #30 tab 10/27/19 Rx sertraline 25 mg tablet 25 mg PO DAILY #60 tab 10/29/19 Rx Allergies Allergy/AdvReac Type Severity Reaction Status Date / Time Latex, Natural Rubber Allergy Intermediate Rash Verified 10/06/19 12:14 penicillin G Allergy Intermediate Vomiting Verified 10/06/19 12:14 egg AdvReac Mild Gastrointestinal Verified 11/09/19 09:58 Upset wheat AdvReac Mild Constipatio Verified 10/06/19 12:14 n Exam Narrative Exam Narrative: Gen: NAD, sitting comfortably in bed, appears well CV: RRR, no murmurs Resp: clear to auscultation bilaterally Abd: soft, nontender, nondistended, gravid Ext: trace edema Objective Labs Result Diagrams: 11/09/19 10:07 Labs: Laboratory Results - last 24 hr 11/09/19 11/09/19 09:15 09:55 Urine Color Yellow Urine Appearance Clear Urine pH 7.5 Ur Specific [place] 1.010 Urine Protein Negative Urine Glucose (UA) Negative Urine Ketones Negative Urine Occult Blood Negative Urine Nitrate Negative Urine Bilirubin Negative Urine Urobilinogen 0.2 Ur Leukocyte Esterase Negative Urine RBC None seen Urine WBC None seen Ur Squamous Epith Cells 0-1 /hpf Urine Bacteria Occasional (0-1) Ur Culture Indicated? Cult not indicated COVID-19 PCR Negative Assessment and Plan Assessment and Plan Assessment and Plan narrative: 29yo at 38w5d who presented with regular painful contractions, minimal cervical change on exam, evidence of early labor. complicated by hypothyroidism with levothyroxine replacement, and bipolar disorder on Sertraline and Quetiapine. Pt with hx of traumatic first delivery with forceps, resuscitation, and significant perineal laceration and therefore will be proceeding with primary . Pt also desires bilateral tubal ligation. Pt consented for in clinic prior to surgery, reviewed today. Risks include but no limited to bleeding/hemorrhage, infection, injury to other organs such as bowel/bladder, injury to fetus. Pt is agreeable to blood transfusion if medically indicated. Consent re-signed and placed in chart. Desires BTL- discussed that this is a permanent procedure and that there are procedures to reverse this but that they are expensive and not always effective and that most insurance companies do not pay for them, so she should consider this permanent. I also discussed with her non-permanent alternatives including Depo, Nuvaring, OCPs, IUD, Nexplanon, and vasectomy. I also explained that failure of BTL is 1/200 and that if she were to get that she has increased likelihood of have ectopic which is potentially life-th reatening and could require future surgery. I also informed her that she can change her mind up to the point that surgery is started. She verbalized understanding of this information and agreed to proceed with BTL. Consent reviewed and placed in chart. Initially signed on 09/08/19. Pt will received 2g of Ancef prior to surgery.
[2019-11-09] MEDS: LACTATED RINGERS 1,000 ML 100 ML IV ×4 (11:15→14:45)
[2019-11-09 11:25] LABS: Add Manual Diff / Slide Review NO; Basophils Absolute Auto 100 /uL (0-100); Basophils Percent Auto 0.6 % (0-2); Eosinophils Absolute Auto 100 /uL (0-450); Eosinophils Percent Auto 0.5 % (2-4); Hemoglobin 11.9 g/dL (12.0-16.0); Lymphocytes Absolute Auto 1500 /uL (1100-4500); Lymphocytes Percent Auto 13.3 % (25-40); Mean Corpuscular HGB Conc 34.1 % (30-36); Mean Corpuscular Hemoglobin 31.3 PG (26-34); Mean Corpuscular Volume 91.8 fL (80-100); Monocytes Absolute Auto 600 /uL (0-900); Monocytes Percent Auto 5.9 % (3-14); Neutrophils Absolute Auto 8800 /uL (1500-7000); Neutrophils Percent Auto 79.7 % (50-75); Platelet Count 232 X10^3/uL (150-400); Red Blood Cell Count 3.82 X10^6/uL (4.0-5.2); Red Cell Distribution Width 12.6 % (11.6-14.8)
--- NOTE | 2019-11-09 11:59 | PM.PREOP ---
Pre-operative Note COVID-19 COVID-19 status: Negative Result date/Date tested (Pos, Neg/Pending): 11/09/19 Interval Note History & Physical reviewed/Exam performed by Physician: Yes Changes to H&P: No
--- NOTE | 2019-11-09 12:27 | SUR.OPER ---
Supine on Padded OR bed, head on pillow, safety belt at thigh, arms secured on padded arm boards at <90 degrees abduction. Bump under right buttock. Legs uncrossed with pillow under knees, gel pad to heels, tape over blanket to lower legs.
[2019-11-09] MEDS: CEFAZOLIN 2 GM/100 ML FROZ.PIGGY IV (12:41)
[2019-11-09 12:54] VITALS: BP 113/74
--- NOTE | 2019-11-09 13:05 | SUR.OPER ---
FHT's 140's per OB RN. Time of live male @1304. Cord blood x 2 to OB with OB Rn.
[2019-11-09 14:02] VITALS: BP 99/57; PULSE 61; RESP 13; TEMP 36.6; O2SAT 100
[2019-11-09 14:07] VITALS: BP 99/52; PULSE 60; RESP 19; O2SAT 100
--- NOTE | 2019-11-09 14:11 | P.OP_ITS ---
Procedure & Clinicians Procedure: Primary with bilateral tubal ligation Same procedure as scheduled: Yes Indications: History of forceps delivery requiring resuscitation and significant perineal laceration presenting in active labor. Desire for permanent c ontraception. Surgeon: Xiomara Sarabia Sweeper Driver: Tammy Piper Click Yes if Unassisted: No Anesthesia Type: Spinal Operative Notes Findings: Normal uterus, ovaries, and tubes Closure Type: primary Specimen(s): other (Left and right fallopian tube segments) Applied: catheter Estimated Blood Loss (mL): 400 Blood products transfused: none Procedure in detail: HISTORY: 29yo at 38w5d who is to undergo a Section as indicated below. PREOP DIAGNOSES: Intrauterine 38w5d with [] POSTOPERATIVE DIAGNOSES: [] OPERATIVE COURSE: The patient was taken to the operating room where spinal anesthesia was placed. She was then prepared and draped in the normal sterile fashion in the dorsal supine position with a leftward tilt. Anesthesia was tested and found to be adequate. A Pfannensteil skin incision was then made with the scalpel and c arried through to the underlying layer of fascia with the scalpel. The fascia was incised in the midline and the incision extended laterally with the Soni scissors. The superior aspect of the fascial incision was then grasped with Celeste clamps, elevated, and the underlying rectus muscles dissected off bluntly and sharply where needed. Attention was then turned to the inferior aspect of the incision which, in a similar fashion, was grasped, tented up with Celeste clamps, and the rectus muscle dissected off bluntly and sharply with Soni scissors. The rectus muscles were then in the midline, and the peritoneum was identified and entered bluntly. The peritoneal incision was then extended with good visualization of the bladder. The bladder blade was then inserted and the vesicouterine peritoneum identified, grasped with pick-ups and entered sharply with the Metzenbaum scissors. The incision was then extended laterally and the bladder flap created digitally. The bladder blade was then reinserted and the lower uterine segment incised in a transverse fashion with the scalpel. The uterine incision was then extended superolaterally by pulling superolaterally on both sides. Membranes were ruptured and fluid was meconium stained. The bladder blade was removed the infant's head was flexed out of OA position and delivered atraumatically. The nose and mouth were suctioned with bulb suction and the cord was clamped and cut. The was handed off to the waiting nursing staff. Cord blood was collected for Rh status. The placenta was then delivered with gentle cord traction. The uterus was then exteriorized and cleared of all clots and debris. The uterine incision was repaired with 1-O Chromic in a running, locked fashion. A second layer of the same suture was used for imbrication. Bleeding was noted on the right aspect of the incision, and two vklxzb-ar-hathif with 1-O Chromic and one with 2-O Chromic were used to obtain excellent hemostasis. Bilateral tubal ligation: Attention was then turned to the patient's bilateral tubal ligation. A Goodridge was used to grape picker the left fallopian tube and a [place]-type of tubal ligation was performed using 0 plain gut suture, ligating each tube twice. The midportion was then excised and submitted for pathology. The same procedure was done on the opposite side. Hemostasis of stumps was excellent. The uterus was returned to the abdomen. The gutters were cleared of all clots. Hysterotomy was investigated and found to be hemostatic. The bladder flap was closed with 2-O Vicryl. The peritoneum was closed with 2-O Vicryl. The fascia was reapproximated with O-Vicryl in a running fashion. The subcutaneous tissue was reapproximated with 4-O Vicryl. The skin was closed with 4-O Vicryl. ROM APPEARANCE: Meconium stained BABY A DELIVERY TIME: 13:04 BABY A OUTCOME: Viable BABY A SEX: Male BABY A WEIGHT: 6lb7oz BABY A NUCHAL CORD: No BABY A # CORD VESSELS: 3 BABY A 1 MINUTE: 8 BABY A 5 MINUTES: 9 PLACENTA DELIVERY TIME: 13:05 PLACENTAL DELIVERY TYPE: Spontaneous PLACENTA APPEARANCE: Intact SPONGE AND NEEDLE COUNTS: Correct x3. DRESSING: Aquacel ANTICOAGULATION: SCDs applied prior to Surgery: Yes Preop antibiotics given (see MAR). The patient was taken to recovery room having tolerated procedure well. Complications: none Post-operative Condition: stable Disposition: PACU Plan for aftercare: Normal postoperative care
[2019-11-09 14:12] VITALS: BP 106/60; PULSE 64; RESP 16; O2SAT 14
[2019-11-09 14:17] VITALS: BP 106/60; PULSE 70; RESP 20; O2SAT 100
[2019-11-09] MEDS: KETOROLAC 30 MG/ML VIAL IV (20:00)
[2019-11-10] MEDS: ONDANSETRON 4 MG/2 ML INJ IV (01:12)
[2019-11-10] MEDS: KETOROLAC 30 MG/ML VIAL IV ×2 (01:59→08:05)
[2019-11-10 05:45] LABS: Hematocrit 28.2 % (36-46); Hemoglobin 9.9 g/dL (12.0-16.0)
[2019-11-10] MEDS: DOCUSATE 250 MG CAPSULE PO (08:45)
[2019-11-10] MEDS: PRENATAL VIT,CALC/IRON/FOLIC 1 TABLET 1 TAB PO (08:45)
[2019-11-10] MEDS: LEVOTHYROXINE 50 MCG TABLET PO (08:45)
[2019-11-10] MEDS: SERTRALINE 25 MG TABLET PO (09:10)
[2019-11-10] MEDS: IBUPROFEN 600 MG TABLET PO ×2 (14:45→21:01)
--- NOTE | 2019-11-10 14:56 | PM.OBPN.1 ---
Subjective - OB Subjective Date Patient Seen: 11/10/19 Time Patient Seen: 08:00 Interval history: Patient doing well. She is voiding and ambulating without difficulty. She is not yet passing flatus. Her pain is very well controlled and minimal. She reports scant lochia. She is breast-feeding with good latch. Exam Vital Signs (past 8 hours): Oxygen Delivery Method Room Air Narrative Exam Narrative: General: No acute distress, sitting comfortably in bed, appears well CV: Regular rate rhythm, no murmurs Respiratory: Clear to auscultation bilaterally Abdomen: Soft, appropriately tender, fundus firm and below the umbilicus, dressing over incision is clean/dry/intact without significant bleeding present Extremities: Trace edema Objective Labs Result Diagrams: 11/10/19 05:30 Labs: Laboratory Results - last 24 hr 11/10/19 05:30 Hgb 9.9 L Hct 28.2 L Assessment & Plan Assessment and Plan (1) S/P : Status: Acute (2) Bipolar 2 disorder: Status: Acute (3) Hypothyroid: Status: Chronic Plan Comments: 29yo POD #1 s/p primary with bilateral tubal ligation. Pt doing well. No complications. - Normal /postoperative care - Encouraged ambulation today - Continue home Seroquel, Sertraline, Levothyroxine - support Time Spent With Patient Time: Total time spent is greater than 50% in coordination of care (as documented) at patient's floor/unit and/or counseling patient: Time with patient: 15-24 minutes
[2019-11-10] MEDS: OXYCODONE/ACETAMINOPHEN 5/325 TABLET 2 TAB PO (17:22)
[2019-11-10] MEDS: QUETIAPINE 100 MG TABLET PO (21:02)
[2019-11-11] MEDS: IBUPROFEN 600 MG TABLET PO ×2 (02:41→08:37)
[2019-11-11] MEDS: SERTRALINE 25 MG TABLET PO (08:37)
[2019-11-11] MEDS: DOCUSATE 250 MG CAPSULE PO (08:37)
[2019-11-11] MEDS: LEVOTHYROXINE 50 MCG TABLET PO (08:37)
[2019-11-11] MEDS: PRENATAL VIT,CALC/IRON/FOLIC 1 TABLET 1 TAB PO (08:37)
--- NOTE | 2019-11-11 08:54 | PM.OBDS.1 ---
Discharge Providers Provider Date of admission: 11/09/19 09:12 Discharge Date: 11/11/19 Primary care physician: Xiomara Sarabia MD Consults: 11/09/19 15:20 Consult to Transportation Supervisor Routine Comment: Discharge provider: Xiomara Sarabia MD Summary Hospital Course Date Patient Seen: 11/11/19 Time Patient Seen: 08:00 Procedures: Primary with bilateral tubal ligation Hospital Course: The pt presented in early labor. She underwent primary as was planned for 39 weeks due to hx of traumatic forceps delivery. The pt also had a bilateral tubal ligation. There were no complications with the surgery, and she delivered a viable baby boy on 11/09/19. , there were no complications. At the time of discharge she was voiding, ambulating, and passing flatus without difficulty. Her lochia was decreasing appropriately. Her pain was well controlled. She was with good latch. She will f/u in clinic in 1 week for incision check. Peripartum Data Infant Delivery Method: Section Procedures: Primary with bilateral tubal ligation complications: none [place] 1: Gender: Male Disposition of : home Discharge Diagnosis (1) S/P : Status: Acute (2) Bipolar 2 disorder: Status: Acute (3) Hypothyroid: Status: Chronic Status at Discharge Cognitive/behavioral status at discharge: oriented Functional status at discharge: independent ambulation Overall status at discharge: patient is progressing back to baseline Time Spent with Patient Time attestation: Total time spent providing and/or coordinating discharge services: Objective Labs Result Diagrams: 11/10/19 05:30 Exam Vital Signs (past 8 hours): Oxygen Delivery Method Room Air General: No acute distress, sitting comfortably in bed, appears well CV: Regular rate rhythm, no murmurs Respiratory: Clear to auscultation bilaterally Abdomen: Soft, appropriately tender, fundus firm and below the umbilicus, dressing over incision is clean/dry/intact without significant bleeding present Extremities: Trace edema Discharge Plan Discharge Plan Patient Disposition: Home Discharge orders & Medications Prescriptions: New acetaminophen 325 mg Tablet 650 mg PO Q6HR PRN (Reason: Fever/Mild Pain (1-3)) Qty: 30 RF: 0 ibuprofen 600 mg Tablet 600 mg PO Q6HR PRN (Reason: Fever/Mild Pain (1-3)) Qty: 30 RF: 0 docusate sodium 250 mg Capsule 250 mg PO DAILY Qty: 30 RF: 0 Vka-L-Ugtsfp Cream 1 applic topical PRN PRN (Reason: ) Qty: 28 RF: 0 oxycodone-acetaminophen 5-325 mg Tablet 2 tab PO Q4HR PRN (Reason: Pain, Severe (7-10)) Qty: 20 RF: 0 Continued quetiapine 100 mg tablet 100 mg PO DAILY Qty: 30 RF: 2 levothyroxine 50 mcg tablet 50 mcg PO DAILY Qty: 30 RF: 5 sertraline 25 mg tablet 25 mg PO DAILY Qty: 60 RF: 2 prenat.vits,lyla,bov-uvqq-hbrki Tablet 1 tab PO DAILY RF: 0 Discontinued ondansetron 4 mg tablet,disintegrating See Rx Instructions .ROUTE .COMPLEX Qty: 30 RF: 0 metoclopramide HCl 10 mg tablet 10 mg PO Q6H PRN (Reason: nausea and vomiting) Qty: 20 RF: 0 Follow up/Referrals: Xiomara Sarabia MD [Primary Care Provider] - 11/17/19 2:00 pm Diet/Activity/Treatments Diet: Diet as Tolerated and Regular Skin/Wound/Dressing Care Report to your healthcare provider any signs of infection, such as:: chills, fever, increased pain and unusual drainage Visit Report/Discharge Packet Instructions: DI for Stand Alone Forms: Discharge: Care Visit Report Forms: Patient Portal/API, Stroke Signs & Symptoms Discharge Data Primary Care Provider: Xiomara Sarabia Discharges patient from system. Discharge Date/Time: 11/11/19 11:00
== END 2019-11-11 11:00 | disposition home or self-care (01) | DRG 540 ==
PROVIDERS: Admitting Provider Family Medicine; PCP Family Medicine; Referring Provider Family Medicine; Visit Provider Family Medicine
PROC: 10D00Z1 Extraction of Products of Conception, Low, Open Approach (ICD-10-PCS; CPT 59514; principal; 2019-11-09 12:30)
DX: O34.73 Maternal care for abnormality of vulva and perineum, third trimester (principal); O75.82 Onset (spontaneous) of labor after 37 completed weeks of gestation but before 39 completed weeks gestation, with delivery by (planned) cesarean section; O77.0 Labor and delivery complicated by meconium in amniotic fluid; Z3A.38 38 weeks gestation of pregnancy; Z37.0 Single live birth; Z30.2 Encounter for sterilization; Z11.59 Encounter for screening for other viral diseases; O99.284 Endocrine, nutritional and metabolic diseases complicating childbirth; E03.9 Hypothyroidism, unspecified; F31.9 Bipolar disorder, unspecified
CPT/HCPCS: 36415; 58611; 59050; 59514; 81001; 85014; 85018; 85025; 86850; 86900; 86901; 87635; G0379; J0690; J1885; J2274; J2405; J2590; J2765; J3010

== ENCOUNTER → 2020-03-15 09:27 | Outpatient (CLI) | payer OTHER, MEDICAID, SELFPAY ==
--- NOTE | 2020-03-15 09:29 | DI.US.S_ITS ---
PROCEDURE: US ABDOMEN COMPLETE INDICATIONS: PAIN, VOMITING TECHNIQUE: Real-time scanning was performed of the abdominal and retroperitoneal organs, with image documentation. COMPARISON: [facility], , US ABDOMEN COMPLETE, 04/24/2019, 3:36. FINDINGS: Liver: Liver is normal in size and homogeneous in echotexture. Main portal vein demonstrates expected hepatopetal flow. Main portal vein measures 1.3 cm in diameter. Gallbladder: Nondilated. No stones or sludge. Normal gallbladder wall thickness. No pericholecystic fluid. Negative sonographic Berg's sign. Biliary ducts: Intrahepatic bile ducts are non-dilated. Extrahepatic bile duct caliber measures 4 mm. Normal is 6-7 mm or less in diameter, or 10 mm or less post-cholecystectomy. Pancreas: Visualized portions of the pancreas are sonographically normal. Spleen: Spleen is normal in size and homogeneous in echotexture. Kidneys: Kidneys are normal in size and echotexture. Right kidney measures 11.2 cm long; left kidney measures 10.7 cm long. No hydronephrosis or nephrolithiasis. No solid masses. Aorta: Visualized aorta is normal in caliber at less than 3 cm. Iliacs: Proximal common iliac arteries are normal in caliber at less than 2.5 cm. IVC: Intrahepatic inferior vena cava is patent. Miscellaneous: No free abdominal fluid. IMPRESSION: 1. No acute cholecystitis. No gallstones. 2. No hydronephrosis. Dictated by: Herb Hinds M.D. on 03/15/2020 at 14:38 Approved by: Herb Hinds M.D. on 03/15/2020 at 14:57
== END ==
PROVIDERS: PCP Family Medicine; Referring Provider Family Medicine; Visit Provider Family Medicine
DX: R10.11 Right upper quadrant pain (principal); R11.10 Vomiting, unspecified
CPT/HCPCS: 76700

== ENCOUNTER → 2020-12-07 10:08 | Outpatient (CLI) | payer OTHER, MEDICAID, SELFPAY ==
[2020-12-07 12:50] LABS: TSH w/ Reflex to FT4 1.51 uIU/mL (0.47-4.68)
== END ==
PROVIDERS: PCP Family Medicine; Referring Provider Family Medicine; Visit Provider Family Medicine
DX: E03.9 Hypothyroidism, unspecified (principal)
CPT/HCPCS: 36415; 84443

== ENCOUNTER → 2020-12-16 09:46 | Outpatient (CLI) | payer OTHER, MEDICAID, SELFPAY ==
--- NOTE | 2020-12-16 09:47 | DI.US.S_ITS ---
PROCEDURE: US ABDOMEN COMPLETE INDICATIONS: CONTINUED PAIN, N/V TECHNIQUE: Real-time scanning was performed of the abdominal and retroperitoneal organs, with image documentation. COMPARISON: [facility], , US ABDOMEN COMPLETE, 03/15/2020, 9:36. FINDINGS: Liver: Liver is normal in size and homogeneous in echotexture. Liver measures 15.8 cm in length. Gallbladder: Gallbladder unremarkable. No wall thickening or sonographic Berg sign. Biliary ducts: Intrahepatic bile ducts are non-dilated. Extrahepatic bile duct caliber measures 3-4 mm. Normal is 6-7 mm or less in diameter, or 10 mm or less post-cholecystectomy. Pancreas: Visualized portions of the pancreas are sonographically normal. Spleen: Spleen is normal in size and homogeneous in echotexture. Kidneys: Kidneys are normal in size and echotexture. Right kidney measures 11.4 cm long; left kidney measures 11.0 cm long. No hydronephrosis or nephrolithiasis. No solid masses. Aorta: Visualized aorta is normal in caliber at less than 3 cm. Iliacs: Proximal common iliac arteries are normal in caliber at less than 2.5 cm. IVC: Intrahepatic inferior vena cava is patent. Miscellaneous: No free abdominal fluid. IMPRESSION: Negative examination as above. Normal appearance of the gallbladder. Dictated by: Simone Nur M.D. on 12/16/2020 at 14:01 Approved by: Simone Nur M.D. on 12/16/2020 at 14:02
== END ==
PROVIDERS: PCP Family Medicine; Referring Provider Family Medicine; Visit Provider Family Medicine
DX: R10.9 Unspecified abdominal pain (principal); R11.0 Nausea
CPT/HCPCS: 76700; 99281

== ENCOUNTER → 2020-12-30 08:21 | Outpatient (CLI) | payer OTHER, MEDICAID, SELFPAY ==
--- NOTE | 2020-12-30 08:22 | DI.NM.S_ITS ---
PROCEDURE: NM HIDA WITH CCK PHARMACEUTICAL: 5.4 mCi Tc-99m mebrofenin IV; 1.2 mcg CCK IV. INDICATIONS: nausea/vomiting TECHNIQUE: Following intravenous administration of Tc-99m mebrofenin, sequential anterior abdominal images were obtained. To evaluate the contractile response of the gallbladder in response to Cholecystokinin (CCK), sincalide (0.02 ?g/kg) was administered by slow intravenous infusion approximately 60 minutes after the administration of the radiopharmaceutical. Sequential imaging was continued for 30 minutes after the start of CCK infusion. Gallbladder ejection fraction was calculated. COMPARISON: None. FINDINGS: Biliary scan: There is normal tracer uptake and excretion by the liver. There is normal visualization of the intrahepatic ducts, common bile duct, and gallbladder. There is normal tracer transit into the duodenum. CCK stimulation: There is normal contractile response of the gallbladder to CCK infusion. The calculated gallbladder ejection fraction is 57%; normal values are above 35%. It has been shown that any patient abdominal pain after CCK administration is related to the rate of CCK injection, rather than to any underlying gallbladder disease (Clinical Nuclear Medicine 2012; 37: 63-70. Journal of Nuclear Medicine 2014; 55: 1-9). IMPRESSION: No scintigraphic evidence of cholecystitis. Dictated by: June Rogers MD, PhD on 12/30/2020 at 13:37 Approved by: June Rogers MD, PhD on 12/30/2020 at 13:38
== END ==
PROVIDERS: PCP Family Medicine; Referring Provider Family Medicine; Visit Provider Family Medicine
DX: R11.2 Nausea with vomiting, unspecified (principal)
CPT/HCPCS: 78227; A9537; J2805

== ENCOUNTER 2021-01-16 07:58 | Emergency (ER) | payer OTHER, MEDICAID, SELFPAY ==
[2021-01-16] VITALS (8 sets, daily range): BP systolic 116–129; BP diastolic 67–82; PULSE 55–80; RESP 16–26; TEMP 36.4; O2SAT 97–100; BMI 58.1
[2021-01-16 09:08] LABS: Add Manual Diff / Slide Review NO; Basophils Absolute Auto 0 /uL (0-100); Basophils Percent Auto 0.4 % (0-2); Eosinophils Absolute Auto 0 /uL (0-450); Eosinophils Percent Auto 0.3 % (2-4); Hematocrit 38.3 % (36-46); Hemoglobin 12.9 g/dL (12.0-16.0); Lymphocytes Absolute Auto 1100 /uL (1100-4500); Lymphocytes Percent Auto 12.7 % (25-40); Mean Corpuscular HGB Conc 33.7 % (30-36); Mean Corpuscular Hemoglobin 30.8 PG (26-34); Mean Corpuscular Volume 91.4 fL (80-100); Monocytes Absolute Auto 400 /uL (0-900); Monocytes Percent Auto 4.7 % (3-14); Neutrophils Absolute Auto 7300 /uL (1500-7000); Neutrophils Percent Auto 81.9 % (50-75); Platelet Count 305 X10^3/uL (150-400); Red Blood Cell Count 4.19 X10^6/uL (4.0-5.2); Red Cell Distribution Width 12.9 % (11.6-14.8); White Blood Cell Count 8.9 X10^3/uL (4.5-11.0)
[2021-01-16] MEDS: ONDANSETRON 4 MG/2 ML INJ IV ×2 (09:15→09:57)
[2021-01-16] MEDS: SODIUM CHLORIDE 0.9% 1,000 ML 1000 ML IV ×2 (09:15→11:18)
[2021-01-16 09:17] LABS: Alanine Aminotransferase 14 IU/L (<35); Albumin 4.6 g/dL (3.5-5.0); Albumin Globulin Ratio 1.6 (1.0-2.8); Alkaline Phosphatase 82 U/L (38-126); Aspartate Aminotransferase 21 IU/L (14-36); BUN Creatinine Ratio 24.6 (6-22); Bilirubin Total 0.4 mg/dL (0.2-1.3); Blood Urea Nitrogen 14 mg/dL (7-17); Calcium 9.4 mg/dL (8.4-10.2); Carbon Dioxide 22 mmol/L (22-32); Chloride 108 mmol/L (98-107); Estimated Glomerular Filt Rate > 60.0 mL/min (>60); Globulin 2.9 g/dL (1.7-4.1); Glucose 119 mg/dL (70-100); HEMOLYSIS < 15 (0-50); Lipase 25 U/L (23-300); Potassium 3.4 mmol/L (3.4-5.1); Sodium 139 mmol/L (137-145); Total Protein 7.5 g/dL (6.3-8.2)
--- NOTE | 2021-01-16 09:19 | PC.NURSE ---
Patient has history of being seen for same episode and has found nothing. Patient is a chronic marijuana user
--- NOTE | 2021-01-16 09:34 | ED_ITS ---
HPI - Nausea/Vomiting/Diarrhea General Chief complaint: Nausea/Vomiting/Diarrhea Stated complaint: Vomitting, stomach pain Time Seen by Provider: 01/16/21 08:01 Source: patient Mode of arrival: Ambulatory Limitations: no limitations History of Present Illness HPI Narrative: 30-year-old female who is a daily cannabis user who is here for evaluation of approximately 5 hours of abdominal pain and nausea and vomiting and chest discomfort and feeling very poorly. She has had abdominal discomfort in the past. She did not tried anything for the symptoms prior to arrival. She has had a right upper quadrant ultrasound and also a HIDA scan which shows no gallbladder pathology. Patient was vomiting in the waiting room prior to arrival. Related Data Home Medications Medication Instructions Recorded Confirmed prenat.vits,lyla,hfe-vwpy-yesac 1 tab PO DAILY 03/24/19 12/07/20 Previous Rx's Medication Instructions Recorded acetaminophen 325 mg tablet 650 mg PO Q6HR PRN #30 tab 11/11/19 ibuprofen 600 mg tablet 600 mg PO Q6HR PRN #30 tab 11/11/19 lanolin (Nvo-A-Gpkhwt) 1 applic TOPICAL PRN PRN #28 gram 11/11/19 sertraline 25 mg tablet See Rx Instructions .ROUTE 09/30/20 .COMPLEX #60 tab cefdinir 300 mg capsule 300 mg PO BID #10 cap 12/07/20 levothyroxine 50 mcg tablet See Rx Instructions .ROUTE 01/06/21 .COMPLEX #30 tab ondansetron 4 mg disintegrating 4 mg PO Q6H PRN #10 tab 01/16/21 tablet Allergies Allergy/AdvReac Type Severity Reaction Status Date / Time Latex, Natural Rubber Allergy Intermediate Rash Verified 12/07/20 09:38 penicillin G Allergy Intermediate Vomiting Verified 12/07/20 09:38 egg AdvReac Mild Gastrointestinal Verified 12/07/20 09:38 Upset wheat AdvReac Mild Constipatio Verified 12/07/20 09:38 n Review of Systems Constitutional Constitutional: Reports fatigue, Denies fever(s), Denies headache(s) and Reports malaise ENT Ears, Nose, Mouth, and Throat: Denies headache(s) Cardiovascular Cardiovascular: Reports chest pain and Reports dyspnea Respiratory Respiratory: Reports dyspnea Gastrointestinal Gastrointestinal: Reports as per HPI and Reports system reviewed and no additional complaints, except as documented Musculoskeletal Musculoskeletal: Reports system reviewed and no additional complaints, except as documented Integumentary/Breasts Skin/Breast: Reports system reviewed and no additional complaints, except as documented Neurologic Neurologic: Denies headache(s) Endocrine Endocrine: Reports fatigue Hematologic/Lymphatic On Anticoagulants: No Allergic/Immunologic Allergic/Immunologic: Reports system reviewed and no additional complaints, except as documented Patient History Medical History Anemia (~2009) Ankle pain (~2003) Anorexia nervosa Anxiety (~1999) Asthma (~2002) Chronic back pain (~2007) Depression (~1999) Depression with anxiety Fibromyalgia (~2003) Foot pain (~2008) H/O reduction of closed dislocation Headache (~2006) Heavy menstrual period (~2002) Humerus shaft fracture Hypothyroid (~2006) Irritable bowel syndrome Ovarian cyst (~2013) Painful menstrual periods (~2002) Scoliosis (~2006) Seasonal allergies Shoulder pain (~2005) Substance abuse (~2005) Surgical History (Updated 08/24/20 @ 10:49 by Xiomara Sarabia MD) Anesthesia History of bone graft (~09/04/17) Humerus fracture (~2017) S/P S/P tubal ligation Staph infection (~10/2009) Family History Grandmother Diabetes mellitus Cancer Sister Lupus Depression Anxiety Mother Hyperlipidemia Hypertension Grandfather Cancer Diabetes mellitus Suicide Grandfather Brain tumor Family/Other Diabetes mellitus Social History marital status: household members: significant other and children pets and animals: Yes (Dogs X 2) education level: other occupational status: employed current occupational exposures/hazards: Yes 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: No leisure activities: exercise, art, music, reading and other Smoking Status: Former smoker alcohol intake: former substance use type: does not use and marijuana Smoking Status: Former smoker alcohol intake frequency: 0-2 drinks per day Substance Use Type: marijuana Exam Initial Vital Signs Initial Vital Signs: Vital Signs Temperature 97.6 F 01/16/21 08:56 Pulse Rate 56 L 01/16/21 08:56 Respiratory Rate 18 01/16/21 08:56 Blood Pressure 124/73 01/16/21 08:56 Pulse Oximetry 99 01/16/21 08:56 Const General: cooperative [facility] Head: normal to inspection and normocephalic Eyes General: appearance normal, both eyes and all related structures Neck Neck: normal visual inspection Chest Chest: normal inspection of the chest Resp Effort & Inspection: normal respiratory effort Auscultation: clear to auscultation bilaterally Cardio Rate: regular rate Rhythm: regular rhythm GI Inspection: normal to inspection Palpation: soft and No tender Skin General: no rashes or lesions noted Neuro General: patient alert, patient awake, patient oriented x3 and moves all extremities Extrem General: normal to inspection and capillary refill normal Psych Appearance: grossly normal and well kempt Course Orders Ordered: ED Orders 01/16/21 08:54 Complete Blood Count AUTO DIFF Stat Comprehensive Metabolic Panel Stat Lipase Stat 01/16/21 09:37 XR chest 1V Stat EKG-12 Lead Stat Discontinued Medications Sodium Chloride (Normal Saline 0.9%) 1,000 mls @ 1,000 mls/hr IV BOLUS ONE Stop: 01/16/21 09:54 Last Infusion: 01/16/21 11:19 Dose: 0 mls/hr Documented by: Admin: 01/16/21 09:15 Dose: 1,000 mls/hr Documented by: HERNAN Sodium Chloride (Normal Saline 0.9%) 1,000 mls @ 1,000 mls/hr IV BOLUS ONE Stop: 01/16/21 11:44 Last Admin: 01/16/21 11:18 Dose: 1,000 mls/hr Documented by: HERNAN Lorazepam (Lorazepam 2 Mg/Ml Inj) 0.5 mg IV NOW ONE Stop: 01/16/21 10:46 Last Admin: 01/16/21 11:10 Dose: 0.5 mg Documented by: CHARLY Metoclopramide HCl (Metoclopramide 10 Mg/2 Ml Inj) 10 mg IV NOW ONE Stop: 01/16/21 10:46 Last Admin: 01/16/21 11:18 Dose: 10 mg Documented by: HERNAN Ondansetron HCl (Ondansetron 4 Mg Odt) 4 mg PO NOW ONE Stop: 01/16/21 08:36 Last Admin: 01/16/21 11:11 Dose: Not Given Documented by: ISRAEL Ondansetron HCl (Ondansetron 4 Mg/2 Ml Inj) 4 mg IV NOW ONE Stop: 01/16/21 09:03 Last Admin: 01/16/21 09:15 Dose: 4 mg Documented by: HERNAN Ondansetron HCl (Ondansetron 4 Mg/2 Ml Inj) 4 mg IV NOW ONE Stop: 01/16/21 09:51 Last Admin: 01/16/21 09:57 Dose: 4 mg Documented by: SERGIO Vital Signs Vital signs: Vital Signs - 8 hr 01/16/21 08:56 01/16/21 09:28 01/16/21 09:30 Temperature 97.6 F Pulse Rate 56 L 57 L 56 L Respiratory Rate 18 22 22 Blood Pressure 124/73 119/82 Pulse Oximetry 99 100 100 01/16/21 10:00 01/16/21 10:30 01/16/21 11:00 Temperature Pulse Rate 55 L 57 L 80 Respiratory Rate 25 H 26 H 23 Blood Pressure 129/76 121/67 Pulse Oximetry 100 99 100 01/16/21 11:30 Temperature Pulse Rate 77 Respiratory Rate 16 Blood Pressure Pulse Oximetry 97 MDM - Nausea/Vomiting/Diarrhea Lab Data Result diagrams: 01/16/21 08:54 01/16/21 08:54 Labs: Lab Results 01/16/21 01/16/21 Range/Units 08:54 08:54 WBC 8.9 (4.5-11.0) X10^3/uL RBC 4.19 (4.0-5.2) X10^6/uL Hgb 12.9 (12.0-16.0) g/dL Hct 38.3 (36-46) % MCV 91.4 (80-100) fL MCH 30.8 (26-34) PG MCHC 33.7 (30-36) % RDW 12.9 (11.6-14.8) % Plt Count 305 (150-400) X10^3/uL Neut % (Auto) 81.9 H (50-75) % Lymph % (Auto) 12.7 L (25-40) % [place] % (Auto) 4.7 (3-14) % Eos % (Auto) 0.3 L (2-4) % Baso % (Auto) 0.4 (0-2) % Neut # (Auto) 7300 H (6767-4182) /uL Lymph # (Auto) 1100 (8973-0981) /uL [place] # (Auto) 400 (0-900) /uL Eos # (Auto) 0 (0-450) /uL Baso # (Auto) 0 (0-100) /uL Sodium 139 (137-145) mmol/L Potassium 3.4 (3.4-5.1) mmol/L Chloride 108 H (98-107) mmol/L Carbon Dioxide 22 (22-32) mmol/L BUN 14 (7-17) mg/dL Creatinine 0.57 (0.52-1.04) mg/dL Estimated GFR > 60.0 (>60) mL/min BUN/Creatinine Ratio 24.6 H (6-22) Glucose 119 H (70-100) mg/dL Calcium 9.4 (8.4-10.2) mg/dL Total Bilirubin 0.4 (0.2-1.3) mg/dL AST 21 (14-36) IU/L ALT 14 (<35) IU/L Alkaline Phosphatase 82 (38-126) U/L Total Protein 7.5 (6.3-8.2) g/dL Albumin 4.6 (3.5-5.0) g/dL Globulin 2.9 (1.7-4.1) g/dL Albumin/Globulin Ratio 1.6 (1.0-2.8) Lipase 25 (23-300) U/L Point of Care Testing Test Results Negative Urine Dip Bedside Urine Glucose Negative Bedside Urine Bilirubin - Negative Bedside Urine Ketone + 15 Urine Specific [place] 1.015 Bedside Urine Occult Blood - Negative Bedside Urine pH 8.0 Bedside Urine Protein - Negative Bedside Urine Urobilinogen - Negative Bedside Urine Nitrite - Negative Bedside Urine Leukocytes - Negative Esterase Imaging Data Chest x-ray: Radiologist's Impression: [address] [address] XRay Report Signed Patient: Noemy Garrido MR#: [id number] : 1990 Acct:[id number] Age/Sex: 30 / F Date of Service: 01/16/21 Loc: ED Accession Number: [id number] ?? Procedure: XR chest 1V Ordering Provider: Neto Oviedo D.O. PROCEDURE:? XR CHEST 1V ? INDICATIONS:? Chest pain/shortness of breath ? TECHNIQUE:? One view of the chest was acquired.? ? COMPARISON:? [facility], CR, SHOULDER MINIMUM 2 VIEW LEFT, 06/26/2017, 9:27. ? FINDINGS:? ? Surgical changes and devices:? Left humerus ORIF. ? Lungs and pleura:? Lungs are clear.? No pleural effusions or pneumothorax.? ? Mediastinum:? Mediastinal contours appear normal.? Heart size is normal.? ? Bones and chest wall:? No suspicious bony lesions.? Overlying soft tissues appear unremarkable.? ? IMPRESSION:? No acute cardiopulmonary abnormality. ? ? ? Dictated by: Herb Hinds M.D. on 01/16/2021 at 9:13 ? ? Approved by: Herb Hinds M.D. on 01/16/2021 at 9:14?? ECG Data Attestation: I personally reviewed and interpreted this ECG as follows: Prior ECG tracings: not available for review Interpretation: Sinus bradycardia Ventricular rate of 58 Normal axis Normal QRS Normal QTC No ST T wave changes MDM Narrative Medical decision making narrative: Labs unremarkable. I she did feel somewhat better after medications here in the emergency department. I have low suspicion for surgical etiology. I have a very high suspicion that this could be the steve sutherland that she smokes on a daily basis. Will send home with a prescription for nausea medication. Will have her contact her primary provider. She expressed understanding and agreed Discharge Plan Departure Patient Disposition: Home Clinical Impression: Nausea and vomiting, Abdominal pain Instructions: DI for Abdominal Pain-Adult, Nausea and Vomiting-Adult Activity Restrictions/Additional Instructions: Your labs today are unremarkable. I do have a high suspicion that your abdominal pain and vomiting could be related to the amount of marijuana that you are smoking. I recommend that you consider decreasing the amount of marijuana that you are smoking on a daily basis. Contact her primary doctor for follow- up. Return to the emergency department for any new or worsening symptoms Prescriptions: New ondansetron 4 mg tablet,disintegrating 4 mg PO Q6H PRN (Reason: nausea and vomiting) Qty: 10 RF: 0 No Action cefdinir 300 mg capsule 300 mg PO BID Qty: 10 RF: 0 sertraline 25 mg tablet See Rx Instructions .ROUTE .COMPLEX Qty: 60 RF: 3 levothyroxine 50 mcg tablet See Rx Instructions .ROUTE .COMPLEX Qty: 30 RF: 2 prenat.vits,lyla,ugy-hzfx-tnjmk Tablet 1 tab PO DAILY RF: 0 acetaminophen 325 mg Tablet 650 mg PO Q6HR PRN (Reason: Fever/Mild Pain (1-3)) Qty: 30 RF: 0 ibuprofen 600 mg Tablet 600 mg PO Q6HR PRN (Reason: Fever/Mild Pain (1-3)) Qty: 30 RF: 0 Xsm-X-Apzeve Cream 1 applic topical PRN PRN (Reason: ) Qty: 28 RF: 0 Referrals: Xiomara Sarabia MD [Primary Care Provider] -
--- NOTE | 2021-01-16 09:37 | DI.RAD.S_ITS ---
PROCEDURE: XR CHEST 1V INDICATIONS: Chest pain/shortness of breath TECHNIQUE: One view of the chest was acquired. COMPARISON: [facility], CR, SHOULDER MINIMUM 2 VIEW LEFT, 06/26/2017, 9:27. FINDINGS: Surgical changes and devices: Left humerus ORIF. Lungs and pleura: Lungs are clear. No pleural effusions or pneumothorax. Mediastinum: Mediastinal contours appear normal. Heart size is normal. Bones and chest wall: No suspicious bony lesions. Overlying soft tissues appear unremarkable. IMPRESSION: No acute cardiopulmonary abnormality. Dictated by: Herb Hinds M.D. on 01/16/2021 at 9:13 Approved by: Herb Hinds M.D. on 01/16/2021 at 9:14
[2021-01-16] MEDS: LORazepam 2 MG/ML INJ 0.5 MG IV (11:10)
--- NOTE | 2021-01-16 11:10 | PC.NURSE ---
Cold wash cloths applied to back of pt's neck to aid in nausea relief. Breathing techniques coached. Pt visibly settling down. at bedside. Lights dimmed for comfort.
[2021-01-16] MEDS: METOCLOPRAMIDE 10 MG/2 ML INJ IV (11:18)
== END 2021-01-16 12:21 | disposition home or self-care (01) ==
PROVIDERS: Emergency Provider Emergency Medicine; PCP Family Medicine
DX: R10.9 Unspecified abdominal pain (principal); R11.2 Nausea with vomiting, unspecified; R07.9 Chest pain, unspecified; R06.02 Shortness of breath
CPT/HCPCS: 71045; 80053; 81003; 81025; 83690; 85025; 93005; 96361; 96374; 96375; 96376; 99284; J2060; J2405; J2765

== ENCOUNTER → 2021-03-08 10:08 | Outpatient (CLI) | payer OTHER, MEDICAID, SELFPAY ==
--- NOTE | 2021-03-08 10:10 | DI.US.S_ITS ---
PROCEDURE: US PELVIC COMPLETE INDICATIONS: DUB TECHNIQUE: Real-time scanning was performed of the pelvic organs, with image documentation. Additional endovaginal scanning was necessary due to incomplete visualization of the adnexal and endometrial structures by transabdominal scanning. COMPARISON: None. FINDINGS: Uterus: Anteverted, mildly heterogeneous echotexture, and measures 10.1 x 4.1 x 6 cm. The endometrium measures 7.5 mm in combined thickness. Ovaries: The right ovary measures 3.3 x 2.1 x 5.1 cm. The left ovary measures 2 x 1.3 x 2.6 cm. Two hypoechoic lesions are seen, measuring up to 3.1 cm, compatible with cysts. Other: No pathologic free abdominal or pelvic fluid. IMPRESSION: 2 simple appearing cysts in the left ovary. Dictated by: Jovon Goncalves M.D. on 03/08/2021 at 12:59 Approved by: Jovon Goncalves M.D. on 03/08/2021 at 13:07
== END ==
PROVIDERS: PCP Family Medicine; Referring Provider Family Medicine; Visit Provider Family Medicine
DX: N93.9 Abnormal uterine and vaginal bleeding, unspecified (principal); N83.202 Unspecified ovarian cyst, left side
CPT/HCPCS: 76830; 76856

== ENCOUNTER → 2021-04-18 12:07 | Outpatient (CLI) | payer OTHER, MEDICAID, SELFPAY ==
[2021-04-18 13:17] LABS: COVID19 -Nasal RAPID Negative (Negative)
== END ==
PROVIDERS: PCP Family Medicine; Visit Provider Nurse Practitioner Family
DX: Z20.822 Contact with and (suspected) exposure to COVID-19 (principal)
CPT/HCPCS: 87635; C9803

== ENCOUNTER 2021-04-19 09:53 | Day surgery (SDC) | payer OTHER, MEDICAID, SELFPAY ==
[2021-04-19] VITALS (7 sets, daily range): BP systolic 89–110; BP diastolic 53–79; PULSE 50–80; RESP 14–32; TEMP 36–36.2; O2SAT 97–100; BMI 27.3
--- NOTE | 2021-04-19 | PATH_ITS ---
[facility] Accession Number: [id number] . 01 Material submitted: . colon - RANDOM COLON BIOPSIES . 01 Clinical history: . DX COLONOSCOPY . 02 Diagnosis: Random Colon, Biopsies: Colonic mucosa with no diagnostic abnormality. Negative for active, chronic, and microscopic colitis. Negative for dysplasia and malignancy. . V 04/22/2021 1048 Local . 02 Electronically signed: . Earnest Farr MD, PhD, Pathologist NPI- [id number] . 01 Gross description: . RANDOM COLON BIOPSIES: Received in formalin are 3 fragment(s) of panchal, soft tissue measuring 0.3 x 0.3 x 0.1 cm to 0.3 x 0.2 x 0.1 cm submitted entirely in 1 cassette(s) /QBJ 04/20/2021 0844 Local . 02 Pathologist provided ICD-10: R19.4 . 02 CPT . 545900 Performed at: 01 [facility] [address], [place], [place] [id number] MD Kwabena Brewer MD Phone: [phone] Performed at: 02 [facility] [address] [place], [place] [id number] MD Arabella Saucedo MD Phone: [phone]
[2021-04-19] MEDS: SODIUM CHLORIDE 0.9% 1,000 ML 84 ML IV (10:24)
--- NOTE | 2021-04-19 10:46 | PM.HP.1 ---
History of Present Illness History of Present Illness Time Patient Seen: 10:46 Chief complaint: DX COLONOSCOPY Narrative: I reviewed the notes by Dr. Shi no significant changes. Patient History Medical History Anemia (~2009) Ankle pain (~2003) Anorexia nervosa Anxiety (~1999) Asthma (~2002) Chronic back pain (~2007) Depression (~1999) Depression with anxiety Fibromyalgia (~2003) Foot pain (~2008) H/O reduction of closed dislocation Headache (~2006) Heavy menstrual period (~2002) Humerus shaft fracture Hypothyroid (~2006) Irritable bowel syndrome Ovarian cyst (~2013) Painful menstrual periods (~2002) Scoliosis (~2006) Seasonal allergies Shoulder pain (~2005) Substance abuse (~2005) Surgical History Anesthesia History of bone graft (~09/04/17) Humerus fracture (~2017) S/P S/P tubal ligation Staph infection (~10/2009) Family & Social History Family History Grandmother Diabetes mellitus Cancer Sister Lupus Depression Anxiety Mother Hyperlipidemia Hypertension Grandfather Cancer Diabetes mellitus Suicide Grandfather Brain tumor Family/Other Diabetes mellitus Social History: household members significant other,children Tobacco & Substance use: Smoking Status Former smoker alcohol intake current alcohol intake frequency 0-2 drinks per day Substance Use Type marijuana Meds Home Medications and Allergies Home Medications Medication Instructions Recorded Confirmed Type prenat.vits,lyla,ytq-lhls-qwajw 1 tab PO DAILY 03/24/19 04/19/21 History levothyroxine 50 mcg tablet See Rx Instructions .ROUTE 01/06/21 04/19/21 Rx .COMPLEX #30 tab ondansetron 4 mg disintegrating 4 mg PO Q6H PRN #10 tab 01/16/21 04/19/21 Rx tablet sertraline 25 mg tablet See Rx Instructions .ROUTE 02/02/21 04/19/21 Rx .COMPLEX #60 tab hydroxyzine pamoate 25 mg capsule See Rx Instructions .ROUTE 04/13/21 04/19/21 Rx .COMPLEX #90 cap Allergies Allergy/AdvReac Type Severity Reaction Status Date / Time Latex, Natural Rubber Allergy Intermediate Rash Verified 04/19/21 10:03 penicillin G Allergy Intermediate Vomiting Verified 04/19/21 10:03 lamotrigine [From Lamictal] Allergy RASH Verified 04/19/21 10:03 egg AdvReac Mild Gastrointestinal Verified 04/19/21 10:03 Upset wheat AdvReac Mild Constipatio Verified 04/19/21 10:03 n Review of Systems Review of Systems ROS: Yes All systems reviewed with the patient and are negative except as otherwise documented Exam Vital Signs (past 8 hours): - 04/19/21 10:05 Temperature 97.1 F L Pulse Rate 80 Respiratory Rate 16 Blood Pressure 110/70 Pulse Oximetry 100 Oxygen Delivery Method Room Air Const General: cooperative and comfortable Orientation: alert HENMT Head: normocephalic Ears: external ears normal Nose: external nose normal Face and sinus: normal facial exam Mouth: oral mucosae normal Eyes General: appearance normal, both eyes and all related structures Neck Neck: normal visual inspection Chest Chest: normal inspection of the chest Resp Effort & Inspection: normal respiratory effort Cardio Rate: regular rate GI Inspection: normal to inspection Skin General: no rashes or lesions noted and No jaundice Neuro General: patient alert and moves all extremities Cognition: normal cognition Speech: speech normal Extrem General: no pedal edema Psych Appearance: grossly normal Assessment & Plan Assessment & Plan narrative: 30-year-old female with persistent diarrhea. Colonoscopy is pursued today. Time Spent With Patient Critical Care time: I spent a total of [] minutes of critical care time on this patient's care today; this time is exclusive of procedural time.
--- NOTE | 2021-04-19 10:48 | PM.PREOP ---
Pre-operative Note COVID-19 COVID-19 status: Negative Result date/Date tested (Pos, Neg/Pending): 04/18/21 Interval Note History & Physical reviewed/Exam performed by Physician: Yes Changes to H&P: No ASA Class (for procedural sedation): II
--- NOTE | 2021-04-19 11:08 | PM.OP.COLON ---
Operative Date/Time/Diagnoses Date of procedure: 04/19/21 Time of procedure: 11:09 Pre-op diagnosis: Diarrhea Post-op diagnosis: same Procedure & Clinicians Study performed: Colonoscopy with biopsies Same procedure as scheduled: Yes Indications: Diarrhea Surgeon: Anthony Freitas Procedure Notes SCOAP/Timeout: Done Procedure in detail: After the risks and benefits were explained, written and verbal informed consent was obtained. The patient was brought into the procedure room and placed into the left lateral decubitus position. Conscious sedation medication was applied as per nursing documentation. Digital rectal examination was accomplished. The scope was introduced into the patient and advanced under direct visualization to the cecum as identified by the appendiceal orifice and ileocecal valve. The scope was slowly withdrawn to carefully examine the mucosa for any defects or lesions. Comprehensive imaging was accomplished throughout the rectum including the dentate line. The colon was decompressed, the scope was then removed from the patient who tolerated the procedure well. Bowel prep fair initially. Copious amounts of irrigation and suction were required to render it adequate Pediatric colonoscope Scope withdrawal time: 9 minutes Sedation minutes: 19 Complications: none Impression: No proctitis. No evidence of macroscopic colitis throughout. Random colon biopsies were taken for exclusion of microscopic disease. No polyps or mass lesions throughout the terminal ileum was interrogated and appeared visually normal. Multiple photographs were taken. Endoscopic diagnosis Visually normal colonoscopy and terminal ileoscopy Post-procedure Plan for aftercare: 1. Await histopathology 2. Follow up with Dr. Shi Disposition: PACU
--- NOTE | 2021-04-19 11:47 | SUR.PHASEII ---
Assumed care from Jessica Wiley. Pt awake,alert, declined any fluids, swallowing well. Up to dress indep and steady on feet. Denies pain.
== END 2021-04-19 11:48 | disposition home or self-care (01) ==
PROVIDERS: PCP Family Medicine; Referring Provider Internal Medicine Gastroenterology; Visit Provider Internal Medicine Gastroenterology
PROC: 0DJD8ZZ Inspection of Lower Intestinal Tract, Via Natural or Artificial Opening Endoscopic (ICD-10-PCS; CPT 45378; principal; 2021-04-19 10:30)
DX: R19.7 Diarrhea, unspecified (principal); E03.9 Hypothyroidism, unspecified; M79.7 Fibromyalgia; F41.9 Anxiety disorder, unspecified; F32.9 Major depressive disorder, single episode, unspecified
CPT/HCPCS: 45380; J2704

== ENCOUNTER 2021-07-15 12:09 | Emergency (ER) | payer OTHER, MEDICAID, SELFPAY ==
[2021-07-15 12:28] VITALS: BP 101/63; PULSE 66; RESP 17; TEMP 36.7; O2SAT 100; BMI 27.3
[2021-07-15 14:25] VITALS: BP 124/68; PULSE 73; O2SAT 100
--- NOTE | 2021-07-15 14:25 | ED_ITS ---
HPI - Skin/Abscess/Foreign Bdy <Hector Stinson PA-C - Last Filed: 07/15/21 17:24> General Chief complaint: Skin/Abscess/Foreign Body Stated complaint: Infection on Eyebrow Time Seen by Provider: 07/15/21 14:03 Source: patient Mode of arrival: Ambulatory History of Present Illness HPI narrative: This is a 30-year-old female presenting to the emergency department due to a left eyebrow infection. Patient reports a large ?lump? to the left eyebrow developing approximately 3 days ago. Patient saw previous provider who has prescribed her a course of clindamycin. Patient states that she has taken 2 days worth of the clindamycin of a 7 day course. Denies any fevers, vision changes, nausea, vomiting, or any other concerning signs or symptoms. Patient states that the left side of her face ?blew up? this morning but states that the swelling and inflammation have improved since then. Related Data Previous Rx's Medication Instructions Recorded levothyroxine 50 mcg tablet See Rx Instructions .ROUTE 04/26/21 .COMPLEX #30 tab sertraline 25 mg tablet See Rx Instructions .ROUTE 04/26/21 .COMPLEX #60 tab hydroxyzine pamoate 25 mg capsule See Rx Instructions .ROUTE 07/12/21 .COMPLEX #90 cap clindamycin HCl 300 mg capsule 300 mg PO TID 7 Days #21 cap 07/14/21 sulfamethoxazole 800 1 tab PO Q12H #10 tab 07/15/21 mg-trimethoprim 160 mg tablet (Bactrim DS) Allergies Allergy/AdvReac Type Severity Reaction Status Date / Time Latex, Natural Rubber Allergy Intermediate Rash Verified 07/15/21 12:28 penicillin G Allergy Intermediate Vomiting Verified 07/15/21 12:28 lamotrigine [From Lamictal] Allergy RASH Verified 07/15/21 12:28 egg AdvReac Mild Gastrointestinal Verified 07/15/21 12:28 Upset wheat AdvReac Mild Constipatio Verified 07/15/21 12:28 n Review of Systems <Hector Stinson PA-C - Last Filed: 07/15/21 17:24> Review of Systems Narrative: See HPI. Patient History <Hector Stinson PA-C - Last Filed: 07/15/21 17:24> Medical History Anemia (~2009) Ankle pain (~2003) Anorexia nervosa Anxiety (~1999) Asthma (~2002) Chronic back pain (~2007) Depression (~1999) Depression with anxiety Fibromyalgia (~2003) Foot pain (~2008) H/O reduction of closed dislocation Headache (~2006) Heavy menstrual period (~2002) Humerus shaft fracture Hypothyroid (~2006) Irritable bowel syndrome Ovarian cyst (~2013) Painful menstrual periods (~2002) Scoliosis (~2006) Seasonal allergies Shoulder pain (~2005) Substance abuse (~2005) Surgical History Anesthesia History of bone graft (~09/04/17) Humerus fracture (~2017) S/P S/P tubal ligation Staph infection (~10/2009) Family History Grandmother Diabetes mellitus Cancer Sister Lupus Depression Anxiety Mother Hyperlipidemia Hypertension Grandfather Cancer Diabetes mellitus Suicide Grandfather Brain tumor Family/Other Diabetes mellitus Social History marital status: household members: significant other and children pets and animals: Yes (Dogs X 2) education level: other occupational status: employed current occupational exposures/hazards: Yes 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: No leisure activities: exercise, art, music, reading and other Smoking Status: Former smoker alcohol intake: current substance use type: does not use and marijuana Smoking Status: Former smoker alcohol intake frequency: 0-2 drinks per day Substance Use Type: marijuana Exam <Hector Stinson PA-C - Last Filed: 07/15/21 17:24> Initial Vital Signs Initial Vital Signs: Vital Signs Temperature 98.1 F 07/15/21 12:28 Pulse Rate 66 07/15/21 12:28 Respiratory Rate 17 07/15/21 12:28 Blood Pressure 101/63 07/15/21 12:28 Pulse Oximetry 100 07/15/21 12:28 Const General: cooperative and healthy appearing HENMT Head: other (Approximately 2 cm wide area of induration to the left eyebrow area. ) Eyes General: appearance normal, both eyes and all related structures Skin Other: 2 cm wide area of induration to left eyebrow area. No surrounding erythema. No drainage. <Laurie Lopez DO - Last Filed: 07/18/21 09:06> Initial Vital Signs Initial Vital Signs: Vital Signs Temperature 98.1 F 07/15/21 12:28 Pulse Rate 66 07/15/21 12:28 Respiratory Rate 17 07/15/21 12:28 Blood Pressure 101/63 07/15/21 12:28 Pulse Oximetry 100 07/15/21 12:28 Course <Hector Stinson PA-C - Last Filed: 07/15/21 17:24> Vital Signs Vital signs: Vital Signs - 8 hr 07/15/21 12:28 07/15/21 14:25 Temperature 98.1 F Pulse Rate 66 73 Respiratory Rate 17 Blood Pressure 101/63 124/68 Pulse Oximetry 100 100 <Laurie Lopez DO - Last Filed: 07/18/21 09:06> Vital Signs Vital signs: Vital Signs - 8 hr 07/15/21 12:28 07/15/21 14:25 Temperature 98.1 F Pulse Rate 66 73 Respiratory Rate 17 Blood Pressure 101/63 124/68 Pulse Oximetry 100 100 MDM - Skin/Abscess/Foreign Bdy <Hector Stinson PA-C - Last Filed: 07/15/21 17:24> MDM Narrative Medical decision making narrative: 30-year-old female presenting with a small superficial infections the left eyebrow area. No evidence of orbital cellulitis or other systemic symptoms. Patient requesting incision and drainage although discuss the risks of permanent scarring and worsening infection. Shared decision-making utilized and recomm ended patient continue completing a full course of antibiotics prior to any possible incision and drainage. Discharge Plan Departure Patient Disposition: Home Clinical Impression: Abscess Instructions: DI for Skin Abscess Activity Restrictions/Additional Instructions: Thank you for coming in to the [facility] Emergency Department. As we discussed I recommend you continue taking the antibiotics to treat this infection rather than attempting to cut open and drain the area as there is in creased risk of scarring. Please continue taking the full course of antibiotics. You may also take ibuprofen to help with inflammation and discomfort. Please continue using warm moist compresses to the area as this will help open up the area as well. I hope the abscess improves soon. Prescriptions: New sulfamethoxazole-trimethoprim [Bactrim DS] 800-160 mg tablet 1 tab PO Q12H Qty: 10 0RF No Action clindamycin HCl 300 mg capsule 300 mg PO TID 7 Days Qty: 21 0RF sertraline 25 mg tablet See Rx Instructions .ROUTE .COMPLEX Qty: 60 3RF Dose Instruction: TAKE 1 TABLET(25 MG) BY MOUTH EVERY DAY. INCREASE TO 2 TABLETS AFTER 2WEEKS Rx Instructions: TAKE 1 TABLET(25 MG) BY MOUTH EVERY DAY levothyroxine 50 mcg tablet See Rx Instructions .ROUTE .COMPLEX Qty: 30 2RF Dose Instruction: TAKE 1 TABLET BY MOUTH DAILY Rx Instructions: TAKE 1 TABLET BY MOUTH DAILY hydroxyzine pamoate 25 mg capsule See Rx Instructions .ROUTE .COMPLEX Qty: 90 0RF Dose Instruction: TAKE 1 CAPSULE BY MOUTH THREE TIMES DAILY NEEDED FOR ANXIETY Rx Instructions: TAKE 1 CAPSULE BY MOUTH THREE TIMES DAILY NEEDED FOR ANXIETY Referrals: Xiomara Sarabia MD [Primary Care Provider] - <Laurie Lopez DO - Last Filed: 07/18/21 09:06> Cosign ED Attending Cosmaggieature Attestation: I was immediately available in the department for consultation. Documentation has been reviewed. I agree with assessment and plan.
--- NOTE | 2021-07-15 14:36 | PC.NURSE ---
Patient appeared to be in distress complaining over her percieved lack of care for her ED visit. At assessment patient had stated that she was out voted by her boyfriend and best friend into coming in. Patient had been seen in [facility] yesterday and had only taken 3 doses of antibiotic. Patient reported that she wanted her wound drained and in the 4 times this has happened it has always been drained. Attempted to educate patient over risks and benefits of incision and drainage versus medication management, but patient did not appear receptive to education and demanded her paperwork and left forcefully from ED. Notified provider and charge nurse.
== END 2021-07-15 14:25 | disposition home or self-care (01) ==
PROVIDERS: Emergency Provider Physician Assistant Medical; PCP Family Medicine
DX: L02.01 Cutaneous abscess of face (principal)
CPT/HCPCS: 99281

== ENCOUNTER → 2022-05-14 11:27 | Outpatient (CLI) | payer OTHER, MEDICAID, SELFPAY ==
[2022-05-14 12:19] LABS: Influenza A - CEPHEID Flu A NEGATIVE (NEGATIVE); Influenza B - CEPHEID Flu B NEGATIVE (NEGATIVE); Respiratory Syncytial Virus Negative (Negative)
[2022-05-14 12:21] LABS: COVID-19 CEPHEID 4-PLEX PCR Negative (Negative)
== END ==
PROVIDERS: PCP Family Medicine; Visit Provider Student in an Organized Health Care Education/Training Program
DX: J02.9 Acute pharyngitis, unspecified (principal)
CPT/HCPCS: 0241U; 87070; 87880

== ENCOUNTER → 2023-02-05 12:24 | Outpatient (CLI) | payer OTHER, MEDICAID, SELFPAY ==
[2023-02-05 14:00] LABS: Thyroid Stimulating Hormone 3.13 uIU/mL (0.47-4.68)
== END ==
PROVIDERS: PCP Family Medicine; Referring Provider Family Medicine; Visit Provider Family Medicine
DX: E03.9 Hypothyroidism, unspecified (principal)
CPT/HCPCS: 36415; 84443

== ENCOUNTER → 2023-10-09 09:47 | Outpatient (CLI) | payer OTHER, MEDICAID, SELFPAY ==
--- NOTE | 2023-10-09 09:49 | DI.RAD.S_ITS ---
PROCEDURE: XR CERVICAL SPINE 2V OR 3V INDICATIONS: eval TECHNIQUE: Three view(s) of the cervical spine were acquired. COMPARISON: None. FINDINGS: Bones: No fractures or dislocations to the T1 level. There is very slight reversal of the normal cervical lordosis with a kyphotic apex at the C5-6 level. There is mild anterior disc degeneration and endplate spurring at this level. The lateral masses of C1 appear intact on the odontoid view. No suspicious bony lesions. Soft tissues: No prevertebral soft tissue swelling. IMPRESSION: Mild C5-6 disc and endplate degeneration. Mild cervical kyphosis may be due to muscle spasm. Dictated by: Savi Wahl M.D. on 10/09/2023 at 14:08 Approved by: Savi Wahl M.D. on 10/09/2023 at 14:12
--- NOTE | 2023-10-09 09:49 | DI.RAD.S_ITS ---
PROCEDURE: XR LUMBAR SPINE 2-3V INDICATIONS: eval TECHNIQUE: 3 views of the lumbar spine were acquired. COMPARISON: None. FINDINGS: Bones: 5 [id number] vertebrae are present. There is normal bony alignment. No vertebral body compression fractures. No suspicious bony lesions. Soft tissues: Overlying bowel gas pattern is normal. No suspicious soft tissue calcifications. IMPRESSION: No acute bony abnormality. Dictated by: Savi Wahl M.D. on 10/09/2023 at 14:12 Approved by: Savi Wahl M.D. on 10/09/2023 at 14:13
== END ==
PROVIDERS: PCP Family Medicine; Referring Provider Family Medicine; Visit Provider Family Medicine
DX: M50.322 Other cervical disc degeneration at C5-C6 level (principal); M40.202 Unspecified kyphosis, cervical region; M54.50 Low back pain, unspecified
CPT/HCPCS: 72040; 72100

== ENCOUNTER → 2024-05-30 14:43 | Outpatient (CLI) | payer OTHER, SELFPAY ==
[2024-05-30 16:23] LABS: Urine N gonorrhoeae NOT DETECTED
[2024-05-30 16:28] LABS: Urine Chlamydia NOT DETECTED
[2024-05-30 17:56] LABS: Hepatitis B Surface Antigen NEGATIVE s/c (NEGATIVE)
[2024-05-30 18:07] LABS: HIV 1 & 2 Ab/Ag 4th Gen Combo NEGATIVE (NEGATIVE); Hep C Virus Ab w/Reflex Quant NEGATIVE s/c (NEGATIVE)
[2024-05-31 08:39] LABS: RPR Screen Non Reactive (Non Reactive)
== END ==
PROVIDERS: PCP Family Medicine; Referring Provider Physician Assistant Surgical; Visit Provider Physician Assistant Surgical
DX: N94.9 Unspecified condition associated with female genital organs and menstrual cycle (principal); Z20.2 Contact with and (suspected) exposure to infections with a predominantly sexual mode of transmission
CPT/HCPCS: 36415; 86592; 86695; 86696; 86803; 87210; 87340; 87389; 87491; 87591